=== PATIENT | female | born 1945 | race Caucasian/White ===

== ENCOUNTER 2017-08-04 18:06 | Emergency (ER) | payer MEDICARE ==
--- NOTE | 2017-08-04 18:55 | RAD ---
FOUR VIEWS LEFT KNEE 08/04/17 HISTORY: Pain. Patient fell while walking up a wooden ramp. COMPARISON: None. FINDINGS: Severe tricompartment degenerative change. There is bone demineralization. No significant joint effus ion. Extensive osteophyte formation. No definite fracture. IMPRESSION: 1. Chronic changes. 2. No posttraumatic sequela. POS: [facility]
--- NOTE | 2017-08-04 18:56 | RAD ---
LEFT ANKLE THREE VIEWS 08/04/17 HISTORY: Fall. Pain. COMPARISON: None. FINDINGS: There are degenerative changes in the midfoot. No fracture. No cortical irregularity or periosteal re action. No significant soft tissue swelling. There is diffuse bone demineralization. IMPRESSION: Chronic changes. No posttraumatic sequela. POS: [facility]
--- NOTE | 2017-08-04 18:58 | RAD ---
LEFT FOOT THREE VIEWS 08/04/17 HISTORY: Fall. Pain. COMPARISON: None. FINDINGS: There is mild bone demineralization. There are degenerative changes in the midfoot. Lisfranc alignmen t appears to be maintained. No fracture. IMPRESSION: 1. No fracture. 2. Chronic changes. POS: [facility]
== END 2017-08-04 19:18 | disposition home or self-care (01) ==
LOC: SCSER 18:06
DX: S93.402A Sprain of unspecified ligament of left ankle, initial encounter (principal); S83.92XA Sprain of unspecified site of left knee, initial encounter; E11.9 Type 2 diabetes mellitus without complications; E03.9 Hypothyroidism, unspecified; E78.5 Hyperlipidemia, unspecified; I10 Essential (primary) hypertension; Z79.4 Long term (current) use of insulin; W01.0XXA Fall on same level from slipping, tripping and stumbling without subsequent striking against object, initial encounter

== ENCOUNTER 2017-11-16 09:36 | Outpatient (CLI) | payer MEDICARE ==
--- NOTE | 2017-11-16 11:01 | RAD ---
CHEST TWO VIEWS: History: Cough, congestion, sore throat. Comparison: None. FINDINGS: Atherosclerosis of the aorta. Normal cardiac silhouette. The pulmonary vessels and hilum are normal. Costophrenic angles are clear. There are patchy interstitial opacities which may represent edema or i nfiltrate. Continued surveillance is recommended. No pneumothorax or osseous abnormality. IMPRESSION: Interstitial opacities as defined above. POS: [facility]
== END 2017-11-16 09:37 | disposition home or self-care (01) ==
LOC: SCSRAD 09:36
PROVIDERS: ATTEND Family Medicine
DX: R05 Cough (principal); R91.8 Other nonspecific abnormal finding of lung field; I70.0 Atherosclerosis of aorta
CPT/HCPCS: 71046

== ENCOUNTER 2017-11-22 15:01 | Outpatient (CLI) | payer MEDICARE ==
--- NOTE | 2017-11-22 18:16 | RAD ---
TWO VIEWS CHEST: Date: 11-22-17 Comparison: 11-16-17 History: Pneumonia. FINDINGS: No pneumothorax, pleural fluid, focal consolidation or alveolar edema. Heart and mediastinal contours are grossly unremarkable. There are atherosclerotic calcification of the aortic arch. IMPRESSION: Stable interstitial prominence with no focal consolation or alveolar edema. POS: [facility]
== END 2017-11-22 15:02 | disposition home or self-care (01) ==
LOC: SCSRAD 15:01
PROVIDERS: ATTEND Family Medicine
DX: J18.9 Pneumonia, unspecified organism (principal)
CPT/HCPCS: 71046

== ENCOUNTER 2018-01-03 13:55 | Outpatient (CLI) | payer MEDICARE | END 2018-01-03 13:56 | disposition home or self-care (01) | LOC: CTENTCT 13:55 | PROVIDERS: ATTEND Otolaryngology Plastic Surgery within the Head & Neck | DX: J32.9 Chronic sinusitis, unspecified (principal) | CPT/HCPCS: 70486 ==

== ENCOUNTER 2018-05-26 10:35 | Outpatient (CLI) | payer MEDICARE | END 2018-05-26 10:36 | disposition home or self-care (01) | LOC: BICMAMMO 10:35 | PROVIDERS: ATTEND Family Medicine | DX: Z12.31 Encounter for screening mammogram for malignant neoplasm of breast (principal); R92.1 Mammographic calcification found on diagnostic imaging of breast | CPT/HCPCS: 77063; 77067 ==

== ENCOUNTER 2018-09-23 14:09 | Outpatient (CLI) | payer MEDICARE ==
--- NOTE | 2018-09-23 14:46 | RAD ---
RIGHT HIP TWO VIEWS: History: Right hip pain. FINDINGS: Minimal osteoarthritic changes of the hip are noted without significant joint space narrowing. Calcif ied uterine fibroid is again demonstrated. IMPRESSION: Minimal arthritic changes of the right hip. POS: [facility]
--- NOTE | 2018-09-23 14:58 | RAD ---
LEFT HIP 2 VIEWS: HISTORY: Hip pain. FINDINGS: There are some mild osteoarthritic changes of the hip without significant joint space narrowing. Min imal osteophytic change. A prominent calcified fibroid is noted. It measures approximately 5.6 cm o n this view. IMPRESSION: 1. Minimal arthritic changes of the left hip. 2. Calcified uterine fibroid. POS: [facility]
--- NOTE | 2018-09-23 14:58 | RAD ---
LUMBAR SPINE SERIES 3 VIEWS: HISTORY: Back pain. FINDINGS: Vertebral bodies maintain normal height. Degenerative osteophytes are seen without significant disk narrowing. Pedicles are intact. Calcified uterine fibroid is again demonstrated. Vascular calcific ations are seen. IMPRESSION: Mild arthritic changes of the spine. POS: [facility]
== END 2018-09-23 14:10 | disposition home or self-care (01) ==
LOC: SCSRAD 14:09
PROVIDERS: ATTEND Family Medicine
DX: M25.551 Pain in right hip (principal); M25.552 Pain in left hip; M54.5 Low back pain; D25.9 Leiomyoma of uterus, unspecified; M16.0 Bilateral primary osteoarthritis of hip; M46.96 Unspecified inflammatory spondylopathy, lumbar region
CPT/HCPCS: 72100

== ENCOUNTER 2019-02-03 07:45 | Outpatient (CLI) | payer MEDICARE ==
--- NOTE | 2019-02-03 10:36 | MRI ---
LUMBAR SPINE MRI WITHOUT IV CONTRAST: HISTORY: Low back pain with radiation down the left hip. FINDINGS: Two small T2 hyperintense foci noted within the liver, not completely characterized but statistically small liver cysts. Generalized disk desiccation changes and disk-osteophytosis. Disk-osteophytosis with mild indention of the ventral thecal sac at T11-T12. T12-L1: Bilateral recess stenosis. L2-L3: Mild lateral recess stenosis. L3-L4: Moderate central canal and bilateral recess stenosis and moderate bilateral foraminal stenosis . L4-5: There is a large extruded disk herniation in the right central region at L4-L5 with considerabl e superior migration up to the mid L4 vertebral body level with severe canal and right lateral recess stenosis with moderate bilateral foraminal stenosis. L5-S1: Mild central canal and lateral recess and foraminal stenosis. Prominent facet arthrosis. IMPRESSION: Multilevel variable severity canal, lateral recess, and foraminal stenosis most marked at L4-L5 with a large cranially extending extruded right central disk with extensive distal migration. Other findi ngs as above. POS: [facility]
== END 2019-02-03 07:46 | disposition home or self-care (01) ==
LOC: SCSMRI 07:45
PROVIDERS: ATTEND Family Medicine
DX: M54.5 Low back pain (principal); M48.061 Spinal stenosis, lumbar region without neurogenic claudication; M51.26 Other intervertebral disc displacement, lumbar region; M47.897 Other spondylosis, lumbosacral region
CPT/HCPCS: 72148

== ENCOUNTER 2019-02-21 14:36 | Emergency (ER) | payer MEDICARE ==
[2019-02-21] MEDS ORDERED: Morphine 4 MG/ML VIAL ONE ×2 (15:50→15:56)
[2019-02-21] MEDS ORDERED: Ketorolac Tromethamine 30 MG/ML VIAL ONE (15:56)
[2019-02-21] MEDS ORDERED: Diazepam 5 MG TAB ONE (15:56)
== END 2019-02-21 16:25 | disposition home or self-care (01) ==
LOC: ERS 14:36
DX: M54.9 Dorsalgia, unspecified (principal)
CPT/HCPCS: 96372; J1885; J2270

== ENCOUNTER 2019-06-27 08:11 | Day surgery (SDC) | payer MEDICARE ==
[2019-06-27] MEDS ORDERED: Dextrose 50% Abboject 50 ML SYRINGE ONE (09:40)
[2019-06-27] MEDS ORDERED: Thrombin 5000 UNITS/5 ML VIAL ONE (12:27)
[2019-06-27] MEDS ORDERED: Sodium Chloride 0.9% 10 ML ONE (12:27)
[2019-06-27] MEDS ORDERED: Fentanyl 100 MCG/2 ML VIAL ONE ×4 (12:42→17:16)
[2019-06-27] MEDS ORDERED: traMADol HCl 50 MG TAB PO PRN (16:09)
[2019-06-27] MEDS ORDERED: Bisacodyl 10 MG SUPP PR PRN (16:09)
[2019-06-27] MEDS ORDERED: Ondansetron PF 4 MG/2 ML Vial IVP PRN (16:09)
[2019-06-27] MEDS ORDERED: Acetaminophen/Codeine 30-300mg Tablet PO PRN (16:09)
[2019-06-27] MEDS ORDERED: Mag-Al 1200 mg/1200 mg/30 ML UDCUP PO PRN (16:09)
[2019-06-27] MEDS ORDERED: Acetaminophen 325 MG TAB PO PRN (16:09)
[2019-06-27] MEDS ORDERED: Fleet Enema 133 ML BOT PR PRN (16:09)
[2019-06-27] MEDS ORDERED: Milk Of Magnesia 30 ML UDCUP PO PRN (16:09)
[2019-06-27] MEDS ORDERED: Morphine 2 MG/ML SYRINGE SLOW IVP PRN (16:09)
[2019-06-27] MEDS ORDERED: HYDROmorphone 2 MG/ML VIAL SLOW IVP PRN (16:14)
[2019-06-27] MEDS ORDERED: Morphine Sulfate 2 MG/ML SYRINGE SLOW IVP PRN (16:14)
[2019-06-27] MEDS ORDERED: Ondansetron HCl/PF 4 MG/2 ML Vial IVP PRN (16:14)
[2019-06-27] MEDS ORDERED: PACU-Morphine 4MG/ML VIAL SLOW IVP PRN (16:14)
[2019-06-27] MEDS ORDERED: Promethazine HCl 25 MG/ML VIAL SLOW IVP PRN (16:14)
[2019-06-27] MEDS ORDERED: Promethazine HCl 25 MG/ML VIAL IM PRN (16:14)
[2019-06-27] MEDS: Sodium Chloride 0.9% 1,000 ML IV SCH (19:58)
[2019-06-27] MEDS: Gabapentin 300 MG CAP PO SCH (20:13)
[2019-06-27] MEDS: Glimepiride 4 MG TAB PO SCH (20:14)
[2019-06-27] MEDS: CEFAZOLIN 2 GM in Premix Bag 1 BAG IVPB SCH (20:14)
[2019-06-27] MEDS ORDERED: Atorvastatin Calcium 10 MG TAB PO SCH (21:00)
[2019-06-27] MEDS: HYDROcodone/Acetaminophen 7.5/325 mg Tablet PO PRN (22:36)
[2019-06-27 23:31] VITALS: BMI 34.3
[2019-06-28] MEDS: HYDROcodone/Acetaminophen 7.5/325 mg Tablet PO PRN ×2 (02:51→11:53)
[2019-06-28] MEDS: Sodium Chloride 0.9% 1,000 ML IV SCH (05:22)
[2019-06-28] MEDS: CEFAZOLIN 2 GM in Premix Bag 1 BAG IVPB SCH (05:22)
[2019-06-28] MEDS: tiZANidine HCl 4 MG TAB PO PRN ×2 (05:22→14:25)
[2019-06-28] MEDS ORDERED: Levothyroxine 150 MCG TAB PO SCH (06:00)
--- NOTE | 2019-06-28 08:29 | OP ---
DATE OF PROCEDURE: 06/27/2019 LOCATION: OR 12. ADMINISTRATIVE SERVICES DIRECTOR: Johny Cardenas PA-C. PREPROCEDURE DIAGNOSIS: Lumbar stenosis with low back and leg pain with lumbar disk extrusion. POSTPROCEDURE DIAGNOSIS: Lumbar stenosis with low back and leg pain with lumbar disk extrusion. PROCEDURES PERFORMED: 1. L3-L4, L4-L5, L5-S1 laminectomies, partial facetectomies, foraminotomies. 2. Use of operative microscope for microdissection. 3. Right L4-L5 diskectomy. DESCRIPTION OF PROCEDURE: After informed consent was obtained from the patient, the patient was brought to the OR. Proper patient, pause, and identification were carried out. She was placed under excellent endotracheal anesthesia and positioned prone on the OR table. All appropriate points were padded. We identified the L3, L4, L5, S1 dorsal spines and lamina. A linear jacinda was made over this region. This area was sterilely cleansed, prepared, and draped. Proper patient, pause, and identification were carried out. The wound was then opened with a combination of sharp, monopolar, and blunt dissection. We then exposed the L3, L4, L5, and S1 dorsal spines and lamina. Localization confirmed our area of interest. We then performed L3, L4, L5, S1 laminectomies, partial facetectomies, foraminotomies. We then brought the microscope in, working over the right L5 traversing nerve root. We removed the disk fragments that have been extruded at the right L4-L5 segment with excellent decompression of the common dural tube and nerve roots. We were pleased with our decompression. Copious irrigation occurred throughout. We maximized hemostasis and we then turned our attention to closure. There was no spinal fluid leak. Vancomycin powder was placed in the wound and the wound was hemostased. Job ID: [id number]
[2019-06-28] MEDS: Gabapentin 300 MG CAP PO SCH ×2 (08:42→14:20)
[2019-06-28] MEDS: Glimepiride 4 MG TAB PO SCH (08:43)
[2019-06-28] MEDS ORDERED: Ubidecarenone 50 MG CAP PO SCH (09:00)
[2019-06-28] MEDS ORDERED: Losartan/Hydrochlorothiazide 100 mg/25 mg Tablet PO SCH (09:00)
[2019-06-28 16:15] VITALS: BP 95/58; TEMP 98.4
--- NOTE | 2019-06-28 22:28 | DIS ---
DATE OF ADMISSION: 06/27/2019 DATE OF DISCHARGE: 06/28/2019 DISCHARGE DIAGNOSES: 1. Lumbar spinal stenosis with lumbar radiculopathy. 2. Low back pain. 3. Type 2 diabetes mellitus. 4. Hypertension. HOSPITAL COURSE: Ms. Ellis was admitted to undergo multilevel lumbar laminectomies with Dr. Blanchard. Her surgery was without complication. She required one overnight stay for adequate pain control and improvement in her mobility. At the time of discharge, she complained of some burning at the incision site, but otherwise had significant improvement in her bilateral lower extremity symptoms. She did have some muscle spasms that was improved with tizanidine. The patient had good strength in the bilateral lower extremities and was using a walker at the time of discharge. Appropriate patient education and outpatient followups were provided to the patient. She was pleased with her outcome postoperatively. Job ID: [id number]
== END 2019-06-28 17:16 | disposition home or self-care (01) ==
LOC: SDC 08:11 → SURG A 16:09 → SDC 06-28 17:16
PROVIDERS: ATTEND Surgery
PROC: 01NB0ZZ Release Lumbar Nerve, Open Approach (ICD-10-PCS; principal; 2019-06-27)
PROC: 0ST20ZZ Resection of Lumbar Vertebral Disc, Open Approach (ICD-10-PCS; 2019-06-27)
DX: M48.061 Spinal stenosis, lumbar region without neurogenic claudication (principal); M51.16 Intervertebral disc disorders with radiculopathy, lumbar region; Z79.1 Long term (current) use of non-steroidal anti-inflammatories (NSAID); Z79.84 Long term (current) use of oral hypoglycemic drugs; Z79.891 Long term (current) use of opiate analgesic; Z79.899 Other long term (current) drug therapy
CPT/HCPCS: 36416; 76000; J0690; J3010; J3370; J3490

== ENCOUNTER 2019-09-04 10:39 | Outpatient (CLI) | payer MEDICARE ==
--- NOTE | 2019-09-04 11:28 | MMO ---
Bilateral MAMMO Bilat Screen [facility]. CLINICAL HISTORY: Patient is 74 years old and is seen for screening. The patient has no family history of breast cancer. The patient has no personal history of cancer. VIEWS: The views performed were: bilateral craniocaudal with tomosynthesis and bilateral mediolateral oblique with tomosynthesis. FILMS COMPARED: The present examination has been compared to prior imaging studies performed at [facility] on 04/11/2014, 05/03/2015, 05/13/2016 and 05/26/2018. This study has been interpreted with the assistance of computer-aided detection. MAMMOGRAM FINDINGS: There are scattered fibroglandular densities. There are stable benign appearing calcifications seen in both breasts. There are no suspicious masses, suspicious calcifications, or new areas of architectural distortion. IMPRESSION: THERE IS NO MAMMOGRAPHIC EVIDENCE OF MALIGNANCY. A ROUTINE FOLLOW-UP MAMMOGRAM IN 1 YEAR IS RECOMMENDED. THE RESULTS OF THIS EXAM WERE SENT TO THE PATIENT. ACR BI-RADS Category 2 - Benign finding MAMMOGRAPHY NOTE: 1. A negative mammogram report should not delay a biopsy if a dominant of clinically suspicious mass is present. 2. Approximately 10% to 15% of breast cancers are not detected by mammography. 3. Adenosis and dense breasts may obscure an underlying neoplasm. Reported by: BRANDEN LENZ MD Electonically Signed: [id number]
== END 2019-09-04 10:40 | disposition home or self-care (01) ==
LOC: BICMAMMO 10:39
PROVIDERS: ATTEND Family Medicine
DX: Z12.31 Encounter for screening mammogram for malignant neoplasm of breast (principal)
CPT/HCPCS: 77063; 77067

== ENCOUNTER 2020-02-21 13:00 | Outpatient (CLI) | payer MEDICARE | END 2020-02-21 13:01 | disposition home or self-care (01) | LOC: DTY/OP 13:00 | PROVIDERS: ATTEND Family Medicine | DX: E11.9 Type 2 diabetes mellitus without complications (principal); E78.5 Hyperlipidemia, unspecified; K21.9 Gastro-esophageal reflux disease without esophagitis; E03.9 Hypothyroidism, unspecified; E66.9 Obesity, unspecified; D64.9 Anemia, unspecified; J30.9 Allergic rhinitis, unspecified; I10 Essential (primary) hypertension; M35.3 Polymyalgia rheumatica | CPT/HCPCS: 97802 ==

== ENCOUNTER 2022-04-14 09:34 | Outpatient (CLI) | payer MEDICARE | END 2022-04-14 09:35 | disposition home or self-care (01) | LOC: BICMAMMO 09:34 | PROVIDERS: ATTEND Family Medicine | DX: Z12.31 Encounter for screening mammogram for malignant neoplasm of breast (principal); Z91.89 Other specified personal risk factors, not elsewhere classified | CPT/HCPCS: 77063; 77067 ==

== ENCOUNTER 2022-09-11 10:54 | Outpatient (CLI) | payer MEDICARE ==
[2022-09-11 16:03] LABS: ALT (SGPT) 8 U/L (8-55); AST (SGOT) 13 U/L (5-34); Albumin 3.6 g/dL (3.4-4.8); Alkaline Phosphatase 95 U/L (40-110); Anion Gap 18 mmol/L (10-20); BUN (Urea Nitrogen) 13 mg/dL (9.8-20.1); CRP (Inflammatory) 20.73 mg/dL (= or < 0.5); Calc. Creatinine Clearance 0 mL/min (70-130); Calcium 9.8 mg/dL (7.8-10.44); Carbon Dioxide 25 mmol/L (23-31); Chloride 98 mmol/L (98-107); Cholesterol 133 mg/dl (< 200 Desired); Estimated GFR 69; HDL Cholesterol 65 mg/dL (>60 Neg Risk); LDL Cholesterol, Calculated 56 mg/dL; Potassium 3.5 mmol/L (3.5-5.1); Protein, Total 8.6 g/dL (5.8-8.1); Sodium 137 mmol/L (136-145); Triglycerides 58 mg/dL (Less than 150)
[2022-09-11 16:10] LABS: Creatinine, Urine 29.63 mg/dL (47-110); Microalbumin Urine 6.6 mg/dL (0.5-50.0); Microalbumin/Creat Ratio 222.7 mg/g (Less than 30)
[2022-09-11 16:19] LABS: Free T4 (Free Thyroxine) 1.61 ng/dL (0.70-1.48); Thyroid Stimulating Hormone 0.2114 uIU/mL (0.35-4.94)
[2022-09-11 16:26] LABS: Glucose 58 mg/dL (83-110)
[2022-09-11 16:56] LABS: Band 6 % (5-11); Hemoglobin 9.1 g/dL (12.0-16.0); Lymphocytes 10 % (21-51); MDiff Complete? YES; Mean Corpuscular HGB CONC 30.3 g/dL (32.0-36.0); Mean Corpuscular Hemoglobin 27.9 pg (27.0-31.0); Mean Corpuscular Volume 92.1 fl (78.0-98.0); Mean Platelet Volume 9.7 fL (7.4-10.4); Monocytes 9 % (0-10); Neutrophil 75 % (42-75); Platelet Count 615 10x3/uL (130-400); Platelet Morphology Comment Appears Increased; RBC Distribution Width 16.3 % (11.5-14.5); RBC Morphology Normal; Red Blood Cell (RBC) Count 3.24 mill/uL (4.20-5.40); White Blood Cell (WBC) Count 19.2 10x3/uL (4.8-10.8)
== END 2022-09-11 10:55 | disposition home or self-care (01) ==
LOC: SCSRAD 10:54
PROVIDERS: ATTEND Family Medicine
DX: E11.9 Type 2 diabetes mellitus without complications (principal); M35.3 Polymyalgia rheumatica; R05.9 Cough, unspecified
CPT/HCPCS: 36415; 71046; 80053; 80061; 82043; 84439; 84443; 84481; 85025; 85652; 86140

== ENCOUNTER 2022-09-21 12:47 | Inpatient (IN) | payer MEDICARE ==
[2022-09-21] MEDS ORDERED: Morphine 4 MG/ML VIAL ONE (13:25)
[2022-09-21] MEDS ORDERED: Piperacillin/Tazobactam 3.375 GM VIAL ONE (13:25)
[2022-09-21] MEDS ORDERED: Ondansetron PF 4 MG/2 ML Vial ONE (13:25)
[2022-09-21 13:28] LABS: Hemoglobin 8.3 g/dL (12.0-16.0); Mean Corpuscular HGB CONC 30.6 g/dL (32.0-36.0); Mean Corpuscular Hemoglobin 27.8 pg (27.0-31.0); Mean Corpuscular Volume 90.9 fl (78.0-98.0); Platelet Count 538 10x3/uL (130-400); RBC Distribution Width 16.5 % (11.5-14.5); Red Blood Cell (RBC) Count 2.97 mill/uL (4.20-5.40); White Blood Cell (WBC) Count 28.4 10x3/uL (4.8-10.8)
[2022-09-21 13:51] LABS: Anisocytosis SLIGHT = 6-15 cells (100X) (0-5/hpf); Band 27 % (5-11); Lymphocytes 6 % (21-51); MDiff Complete? YES; Monocytes 1 % (0-10); Neutrophil 66 % (42-75); Ovalocytes SLIGHT = 2-5 cells (100X) (0-1/hpf); Platelet Morphology Comment Appears Increased; Polychromasia SLIGHT = 2-3 cells (100X) (0-2/hpf); Toxic Granulation SLIGHT; Vacuoles SLIGHT
[2022-09-21 13:52] LABS: ALT (SGPT) 8 U/L (8-55); AST (SGOT) 13 U/L (5-34); Alkaline Phosphatase 119 U/L (40-110); Anion Gap 16 mmol/L (10-20); BUN (Urea Nitrogen) 24 mg/dL (9.8-20.1); Bilirubin, Total 0.8 mg/dL (0.2-1.2); Calc. Creatinine Clearance 0 mL/min (70-130); Calcium 9.6 mg/dL (7.8-10.44); Carbon Dioxide 25 mmol/L (23-31); Chloride 94 mmol/L (98-107); Estimated GFR 69; Globulin 5.2 g/dL (2.4-3.5); Glucose 67 mg/dL (83-110); Potassium 3.7 mmol/L (3.5-5.1); Protein, Total 8.2 g/dL (5.8-8.1); Sodium 131 mmol/L (136-145)
[2022-09-21] MEDS ORDERED: Acetaminophen 325 MG TAB PO PRN (14:12)
[2022-09-21] MEDS ORDERED: Bisacodyl 10 MG SUPP PR PRN (14:12)
[2022-09-21 15:46] LABS: Iron 12 ug/dL (50-170); Iron Binding Capacity, Total 148 mcg/dL (265-497)
[2022-09-21 16:11] LABS: Ferritin 572.08 ng/mL (10-291)
[2022-09-21] MEDS ORDERED: Morphine 2 MG/ML VIAL ONE (17:19)
[2022-09-21] MEDS: Morphine 2 MG/ML VIAL SLOW IVP PRN (17:27)
[2022-09-21 19:38] LABS: SARS-CoV-2 NAA Rapid Test Not Detected (NotDetected)
[2022-09-21] MEDS: Piperacillin/Tazobactam 3.375 GM in Sodium Chloride 0.9% 100 ML IVPB SCH (20:22)
[2022-09-21] MEDS: Ondansetron PF 4 MG/2 ML Vial IVP PRN (20:54)
[2022-09-21] MEDS: Senokot S 8.6-50 MG TAB PO SCH (20:54)
[2022-09-21] MEDS: Atorvastatin Calcium 10 MG TAB PO SCH (20:54)
[2022-09-21] MEDS: Sodium Chloride 0.9% 1,000 ML IV SCH (21:06)
[2022-09-21] MEDS ORDERED: Losartan 25 MG TAB PO SCH (21:15)
[2022-09-22] MEDS: Piperacillin/Tazobactam 3.375 GM in Sodium Chloride 0.9% 100 ML IVPB SCH ×3 (00:01→16:38)
[2022-09-22] MEDS ORDERED: Dextrose 50% Abboject 50 ML SYRINGE SLOW IVP PRN (00:29)
[2022-09-22] MEDS ORDERED: HumaLOG 300 UNITS/3 ML VIAL SC PRN (00:29)
[2022-09-22] MEDS ORDERED: Dextrose 5% in Water 1,000 ML IV PRN (00:29)
[2022-09-22] MEDS: Sodium Chloride 0.9% 1,000 ML IV SCH ×2 (03:43→16:37)
[2022-09-22] MEDS: Morphine 2 MG/ML VIAL SLOW IVP PRN ×3 (03:50→21:16)
[2022-09-22] MEDS: Levothyroxine Sodium 125 MCG TAB PO SCH (05:19)
[2022-09-22] MEDS: Liothyronine Sodium 25 MCG TAB PO SCH (05:19)
[2022-09-22 07:38] LABS: Anion Gap 11 mmol/L (10-20); BUN (Urea Nitrogen) 18 mg/dL (9.8-20.1); Calc. Creatinine Clearance 63 mL/min (70-130); Calcium 8.7 mg/dL (7.8-10.44); Carbon Dioxide 27 mmol/L (23-31); Chloride 102 mmol/L (98-107); Estimated GFR 66; Glucose 76 mg/dL (83-110); Potassium 3.9 mmol/L (3.5-5.1); Sodium 136 mmol/L (136-145)
[2022-09-22 08:15] LABS: Band 27 % (5-11); Hemoglobin 7.2 g/dL (12.0-16.0); Hypochromia SLIGHT = 6-15 cells (100X) (0-5/hpf); Lymphocytes 5 % (21-51); MDiff Complete? YES; Mean Corpuscular HGB CONC 30.6 g/dL (32.0-36.0); Mean Corpuscular Hemoglobin 27.8 pg (27.0-31.0); Mean Platelet Volume 8.9 fL (7.4-10.4); Monocytes 6 % (0-10); Neutrophil 61 % (42-75); Ovalocytes SLIGHT = 2-5 cells (100X) (0-1/hpf); Platelet Count 473 10x3/uL (130-400); Platelet Morphology Comment Appears Increased; RBC Distribution Width 16.2 % (11.5-14.5); Reactive Lymphocytes 1 % (0-10); Red Blood Cell (RBC) Count 2.58 mill/uL (4.20-5.40); Schistocytes SLIGHT = 2-5 cells (100X) (0-1/hpf); Target Cells SLIGHT = 2-5 cells (100X) (0-1/hpf); Tear Drops SLIGHT = 2-5 cells (100X) (0-1/hpf); White Blood Cell (WBC) Count 20.9 10x3/uL (4.8-10.8)
[2022-09-22] MEDS: Senokot S 8.6-50 MG TAB PO SCH ×2 (08:47→19:20)
[2022-09-22] MEDS: Polyethylene Glycol 3350 17 GM Packet PO SCH (08:47)
[2022-09-22] MEDS: Losartan 25 MG TAB PO SCH (08:47)
[2022-09-22] MEDS: Ondansetron PF 4 MG/2 ML Vial IVP PRN (17:19)
[2022-09-22] MEDS: Atorvastatin Calcium 10 MG TAB PO SCH (19:20)
[2022-09-22] MEDS: Dextrose 5 %-0.45 % NaCl 1,000 ML IV SCH (19:59)
[2022-09-23] MEDS: Piperacillin/Tazobactam 3.375 GM in Sodium Chloride 0.9% 100 ML IVPB SCH ×3 (00:24→18:38)
[2022-09-23] MEDS: Levothyroxine Sodium 125 MCG TAB PO SCH (05:11)
[2022-09-23] MEDS: Liothyronine Sodium 25 MCG TAB PO SCH (05:11)
[2022-09-23 07:49] LABS: INR-International Normal Ratio 1.4; PTT 38.9 sec (22.9-36.1); Prothrombin Time 17.3 sec (12.0-14.7)
[2022-09-23 07:50] LABS: Mean Corpuscular Hemoglobin 27.3 pg (27.0-31.0); Mean Corpuscular Volume 91.1 fl (78.0-98.0); Mean Platelet Volume 8.7 fL (7.4-10.4); Platelet Count 564 10x3/uL (130-400); RBC Distribution Width 16.3 % (11.5-14.5); Red Blood Cell (RBC) Count 2.94 mill/uL (4.20-5.40)
[2022-09-23 07:53] LABS: Anion Gap 15 mmol/L (10-20); BUN (Urea Nitrogen) 16 mg/dL (9.8-20.1); Calc. Creatinine Clearance 73 mL/min (70-130); Calcium 8.9 mg/dL (7.8-10.44); Carbon Dioxide 23 mmol/L (23-31); Chloride 100 mmol/L (98-107); Estimated GFR 80; Magnesium 1.8 mg/dL (1.6-2.6); Phosphorus 3.4 mg/dL (2.3-4.7); Potassium 3.4 mmol/L (3.5-5.1); Sodium 135 mmol/L (136-145)
[2022-09-23 08:04] LABS: Glucose 57 mg/dL (83-110)
[2022-09-23] MEDS: Dextrose 5 %-0.45 % NaCl 1,000 ML IV SCH (08:13)
[2022-09-23] MEDS: Senokot S 8.6-50 MG TAB PO SCH (08:13)
[2022-09-23] MEDS ORDERED: Magnesium 2 GM/50 ML(in water) 2 GM in Premix Bag 1 BAG IVPB SCH (08:15)
[2022-09-23] MEDS ORDERED: Dextrose 50% Abboject 50 ML SYRINGE ONE (08:15)
[2022-09-23] MEDS ORDERED: Potassium Phosphate 30 MMOL, Magnesium Sulfate 2 GM in Sodium Chloride 0.9% 250 ML 250 ML IVPB SCH (08:15)
[2022-09-23] MEDS ORDERED: Fentanyl 250 MCG/5 ML VIAL ONE (08:42)
[2022-09-23] MEDS ORDERED: Bupivacaine/Epinephrine 0.25% 30 ML VIAL ONE (08:49)
[2022-09-23] MEDS ORDERED: PHENYLEPHRINE-NS 100 MCG/ML 10 ML SYRINGE ONE (09:04)
[2022-09-23] MEDS ORDERED: Dexamethasone 20 MG/5 ML VIAL ONE (09:04)
[2022-09-23] MEDS ORDERED: Glycopyrrolate 0.2 MG/ML 5 ML SYRINGE ONE (09:04)
[2022-09-23] MEDS ORDERED: Lidocaine 1% PF 5 ML VIAL ONE (09:04)
[2022-09-23] MEDS ORDERED: Rocuronium Bromide 10 MG/ML (10ML VIAL) ONE (09:04)
[2022-09-23] MEDS ORDERED: Ondansetron PF 4 MG/2 ML Vial ONE (09:04)
[2022-09-23] MEDS ORDERED: NEOSTIGMINE 3 MG/3 ML SYR 3 MG/3 ML SYRINGE ONE (09:04)
[2022-09-23] MEDS ORDERED: PROPOFOL 200 MG/20 ML VIAL ONE (09:04)
[2022-09-23] MEDS ORDERED: Heparin 10,000 UNITS/ 10 ML VIAL ONE (09:45)
[2022-09-23 09:47] LABS: Band 18 % (5-11); Hypochromia SLIGHT = 6-15 cells (100X) (0-5/hpf); Lymphocytes 3 % (21-51); MDiff Complete? YES; Monocytes 4 % (0-10); Neutrophil 75 % (42-75); Platelet Morphology Comment Appears Increased; Polychromasia MODERATE = 3-4 cells (100X) (0-2/hpf)
[2022-09-23] MEDS ORDERED: Neomycin-Polymyxin 1 ML AMP ONE (12:09)
[2022-09-23] MEDS ORDERED: Promethazine HCl 25 MG/ML VIAL IM PRN ×2 (14:02→15:14)
[2022-09-23] MEDS ORDERED: HYDROmorphone 2 MG/ML VIAL SLOW IVP PRN (14:02)
[2022-09-23] MEDS ORDERED: Ondansetron HCl/PF 4 MG/2 ML Vial IVP PRN (14:02)
[2022-09-23] MEDS ORDERED: SUGAMMADEX SODIUM 200 MG/2 ML VIAL ONE (14:04)
[2022-09-23] MEDS ORDERED: Fentanyl 100 MCG/2 ML VIAL ONE (14:23)
[2022-09-23] MEDS ORDERED: Potassium Chloride 10 MEQ in Dextrose 5%-Lactated Ringers 1,000 ML IV SCH ×2 (14:30→18:45)
[2022-09-23] MEDS ORDERED: HYDROmorphone 0.5 MG/0.5 ML SYRINGE ONE ×2 (15:14→16:04)
[2022-09-23] MEDS ORDERED: Naloxone HCl 0.4 mg/ml Vial IV PRN (15:14)
[2022-09-23] MEDS ORDERED: diphenhydrAMINE 50 MG/ML VIAL IVP PRN (15:14)
[2022-09-23] MEDS ORDERED: diphenhydrAMINE 25 MG CAP PO PRN (15:14)
[2022-09-23] MEDS ORDERED: diphenhydrAMINE 50 MG/ML VIAL IM PRN (15:14)
[2022-09-23] MEDS ORDERED: HYDROmorphone 10 mg/100 ml CADD IVPB PRN (15:14)
[2022-09-23] MEDS ORDERED: Communication Order-Pharmacy FS SCH (15:15)
[2022-09-23] MEDS: Losartan 25 MG TAB PO SCH (15:17)
[2022-09-23] MEDS ORDERED: HYDROmorphone/PF 10 MG in Sodium Chloride 0.9% 99 ML IVPB PRN (15:45)
[2022-09-23] MEDS: Polyethylene Glycol 3350 17 GM Packet PO SCH (18:30)
[2022-09-23] MEDS: Ketorolac Tromethamine 30 MG/ML VIAL IVP SCH ×2 (18:35→23:16)
[2022-09-23] MEDS: Dextrose 5% in Water 1,000 ML IV SCH (19:08)
[2022-09-23 20:12] LABS: Actual Bicarbonate (HCO3a) 15.9 mEq/L (22-28); Base Excess (BEa) -8.5 mEq/L (-2.0 to +3.0); CO2 Tension 28.8 mmHg (35.0-45.0); Calcium, Ionized (arterial) 1.07 mmol/L (1.12-1.30); Carboxyhemoglobin (COHb) 0.8 gm% (0.0-3.0); Hemoglobin (Hb) 8.4 g/dL (12.0-16.0); O2 Tension (PaO2), arterial 153.2 mmHg (> 70.0); Potassium - ABG Lab 3.99 mmol/L (3.70-5.30); pH, Arterial 7.36 (7.35-7.45)
[2022-09-23 20:14] LABS: Puncture Site LRA
[2022-09-23] MEDS ORDERED: Calcium Chloride 1 GM/10 ML Abboject SYRINGE ONE (20:30)
[2022-09-23] MEDS ORDERED: Calcium Chloride 1 GM/10 ML Abboject SYRINGE IVP SCH (20:45)
[2022-09-23] MEDS: Pantoprazole 40 MG VIAL IVP SCH (22:32)
[2022-09-23] MEDS: Atorvastatin Calcium 10 MG TAB PO SCH (22:35)
[2022-09-23] MEDS ORDERED: Sodium Chloride 0.9% 500 ML IV SCH (23:15)
[2022-09-24] MEDS ORDERED: Sodium Chloride 0.9% 500 ML IV SCH (01:15)
[2022-09-24] MEDS: Piperacillin/Tazobactam 3.375 GM in Sodium Chloride 0.9% 100 ML IVPB SCH ×3 (01:38→17:08)
[2022-09-24 02:13] LABS: Hemoglobin 9.1 g/dL (12.0-16.0); Mean Corpuscular HGB CONC 31.8 g/dL (32.0-36.0); Mean Corpuscular Hemoglobin 29.9 pg (27.0-31.0); Mean Corpuscular Volume 93.9 fl (78.0-98.0); Mean Platelet Volume 8.7 fL (7.4-10.4); Platelet Count 406 10x3/uL (130-400); RBC Distribution Width 15.6 % (11.5-14.5); Red Blood Cell (RBC) Count 3.04 mill/uL (4.20-5.40); White Blood Cell (WBC) Count 36.1 10x3/uL (4.8-10.8)
[2022-09-24 02:30] LABS: Anion Gap 19 mmol/L (10-20); BUN (Urea Nitrogen) 19 mg/dL (9.8-20.1); Calc. Creatinine Clearance 42 mL/min (70-130); Calcium 9.1 mg/dL (7.8-10.44); Carbon Dioxide 14 mmol/L (23-31); Chloride 107 mmol/L (98-107); Estimated GFR 41; Glucose 201 mg/dL (83-110); Magnesium 2.1 mg/dL (1.6-2.6); Phosphorus 6.5 mg/dL (2.3-4.7); Potassium 4.8 mmol/L (3.5-5.1); Sodium 135 mmol/L (136-145)
[2022-09-24 02:39] LABS: Anisocytosis SLIGHT = 6-15 cells (100X) (0-5/hpf); Band 33 % (5-11); Burr Cells MODERATE= 6-15 cells (100X) (0-1/hpf); Hypochromia SLIGHT = 6-15 cells (100X) (0-5/hpf); Lymphocytes 4 % (21-51); MDiff Complete? YES; Monocytes 4 % (0-10); Neutrophil 59 % (42-75); Platelet Morphology Comment Appears Adequate; Polychromasia SLIGHT = 2-3 cells (100X) (0-2/hpf)
[2022-09-24] MEDS: Dextrose 5% in Water 1,000 ML IV SCH (05:25)
[2022-09-24] MEDS: Ketorolac Tromethamine 30 MG/ML VIAL IVP SCH (05:26)
[2022-09-24] MEDS: Levothyroxine Sodium 125 MCG TAB PO SCH (05:26)
[2022-09-24] MEDS: Liothyronine Sodium 25 MCG TAB PO SCH (06:21)
[2022-09-24] MEDS: HumaLOG 300 UNITS/3 ML VIAL SC PRN ×2 (06:25→12:29)
[2022-09-24] MEDS ORDERED: Sodium Chloride 0.9% 1,000 ML IV SCH (06:45)
[2022-09-24] MEDS ORDERED: FLU VACC QS2022-23(65YR UP)/PF 240 MCG/0.7 ML SYRINGE IM ONE (09:00)
[2022-09-24] MEDS: Pantoprazole 40 MG VIAL IVP SCH ×2 (09:03→20:23)
[2022-09-24] MEDS ORDERED: Lactated Ringer's 500 ML IV SCH (15:15)
[2022-09-24 16:13] LABS: Actual Bicarbonate (HCO3a) 19.6 mEq/L (22-28); Base Excess (BEa) -4.3 mEq/L (-2.0 to +3.0); CO2 Tension 31.2 mmHg (35.0-45.0); Calcium, Ionized (arterial) 1.19 mmol/L (1.12-1.30); Hemoglobin (Hb) 8.4 g/dL (12.0-16.0); O2 Tension (PaO2), arterial 114.8 mmHg (> 70.0); Potassium - ABG Lab 4.02 mmol/L (3.70-5.30); pH, Arterial 7.42 (7.35-7.45)
[2022-09-24 16:15] LABS: Puncture Site LRA
[2022-09-24] MEDS: Atorvastatin Calcium 10 MG TAB PO SCH (20:23)
[2022-09-24 21:06] LABS: Hemoglobin 7.4 g/dL (12.0-16.0); Mean Corpuscular HGB CONC 31.1 g/dL (32.0-36.0); Mean Corpuscular Hemoglobin 28.6 pg (27.0-31.0); Mean Corpuscular Volume 91.8 fl (78.0-98.0); Mean Platelet Volume 8.7 fL (7.4-10.4); Platelet Count 396 10x3/uL (130-400); RBC Distribution Width 15.6 % (11.5-14.5); White Blood Cell (WBC) Count 36.2 10x3/uL (4.8-10.8)
[2022-09-24 21:26] LABS: ALT (SGPT) 10 U/L (8-55); AST (SGOT) 16 U/L (5-34); Alkaline Phosphatase 64 U/L (40-110); Anion Gap 10 mmol/L (10-20); BUN (Urea Nitrogen) 22 mg/dL (9.8-20.1); Band 18 % (5-11); Bilirubin, Total 0.6 mg/dL (0.2-1.2); Calc. Creatinine Clearance 53 mL/min (70-130); Calcium 8.2 mg/dL (7.8-10.44); Carbon Dioxide 21 mmol/L (23-31); Chloride 105 mmol/L (98-107); Estimated GFR 51; Globulin 3.3 g/dL (2.4-3.5); Glucose 208 mg/dL (83-110); Lymphocytes 7 % (21-51); MDiff Complete? YES; Magnesium 1.8 mg/dL (1.6-2.6); Monocytes 1 % (0-10); Myelocyte 1 % (0-0); Neutrophil 73 % (42-75); Potassium 4.3 mmol/L (3.5-5.1); Protein, Total 5.3 g/dL (5.8-8.1); Sodium 132 mmol/L (136-145); Toxic Granulation SLIGHT
[2022-09-24] MEDS ORDERED: Metoprolol Tartrate 5 MG/5 ML VIAL IVP SCH (21:30)
[2022-09-24] MEDS ORDERED: Chloraseptic Spray 180 ml Bottle PO PRN (21:45)
[2022-09-24] MEDS ORDERED: Magnesium 2 GM/50 ML(in water) 2 GM in Premix Bag 1 BAG IVPB SCH (21:45)
[2022-09-24 21:47] LABS: Phosphorus 3.3 mg/dL (2.3-4.7)
[2022-09-24] MEDS ORDERED: Metoprolol Tartrate 25 MG TAB PO SCH (21:47)
[2022-09-24] MEDS ORDERED: Albumin 25% 25 GM/100 ML BOT IVPB PRN ×2 (21:48→21:59)
[2022-09-24] MEDS ORDERED: Metoprolol Tartrate 5 MG/5 ML VIAL IVP PRN (21:49)
[2022-09-24 22:26] LABS: CKMB 2.4 ng/mL (0-6.6)
[2022-09-25] MEDS: Piperacillin/Tazobactam 3.375 GM in Sodium Chloride 0.9% 100 ML IVPB SCH ×3 (01:21→17:48)
[2022-09-25 06:16] LABS: Hemoglobin 7.9 g/dL (12.0-16.0); Mean Corpuscular HGB CONC 32.1 g/dL (32.0-36.0); Mean Corpuscular Hemoglobin 28.9 pg (27.0-31.0); Mean Corpuscular Volume 89.8 fl (78.0-98.0); Mean Platelet Volume 8.6 fL (7.4-10.4); Platelet Count 360 10x3/uL (130-400); RBC Distribution Width 15.4 % (11.5-14.5); Red Blood Cell (RBC) Count 2.75 mill/uL (4.20-5.40); White Blood Cell (WBC) Count 32.4 10x3/uL (4.8-10.8)
[2022-09-25] MEDS: Levothyroxine Sodium 125 MCG TAB PO SCH (06:37)
[2022-09-25 06:49] LABS: Anion Gap 11 mmol/L (10-20); BUN (Urea Nitrogen) 20 mg/dL (9.8-20.1); Calc. Creatinine Clearance 74 mL/min (70-130); Calcium 8.6 mg/dL (7.8-10.44); Carbon Dioxide 21 mmol/L (23-31); Chloride 105 mmol/L (98-107); Estimated GFR 68; Glucose 138 mg/dL (83-110); Magnesium 2.3 mg/dL (1.6-2.6); Phosphorus 2.5 mg/dL (2.3-4.7); Potassium 4.2 mmol/L (3.5-5.1); Sodium 133 mmol/L (136-145)
[2022-09-25 06:53] LABS: Band 14 % (5-11); Lymphocytes 6 % (21-51); MDiff Complete? YES; Monocytes 3 % (0-10); Neutrophil 77 % (42-75); Toxic Granulation SLIGHT
[2022-09-25] MEDS ORDERED: Sodium Phosphate 15 MMOL in Sodium Chloride 0.9% 250 ML 250 ML IVPB SCH ×2 (07:45→16:45)
[2022-09-25] MEDS: hydrALAZINE 20 MG/ML VIAL SLOW IVP PRN ×2 (07:50→14:26)
[2022-09-25] MEDS: Metoprolol Tartrate 25 MG TAB PO SCH ×2 (07:56→20:19)
[2022-09-25] MEDS: Liothyronine Sodium 25 MCG TAB PO SCH (08:09)
[2022-09-25] MEDS: Pantoprazole 40 MG VIAL IVP SCH ×2 (08:09→20:20)
[2022-09-25] MEDS ORDERED: Furosemide 40 MG/4 ML VIAL ONE (08:32)
[2022-09-25] MEDS ORDERED: Furosemide 40 MG/4 ML VIAL SLOW IVP SCH (09:15)
[2022-09-25 09:31] LABS: Troponin I 0.031 ng/mL (< 0.028)
[2022-09-25 16:17] LABS: Anion Gap 16 mmol/L (10-20); BUN (Urea Nitrogen) 18 mg/dL (9.8-20.1); Calc. Creatinine Clearance 69 mL/min (70-130); Calcium 8.7 mg/dL (7.8-10.44); Carbon Dioxide 20 mmol/L (23-31); Chloride 104 mmol/L (98-107); Estimated GFR 63; Glucose 81 mg/dL (83-110); Phosphorus 2.9 mg/dL (2.3-4.7); Sodium 136 mmol/L (136-145)
[2022-09-25 17:18] LABS: Hemoglobin 9.4 g/dL (12.0-16.0); Mean Corpuscular HGB CONC 31.6 g/dL (32.0-36.0); Mean Corpuscular Hemoglobin 28.6 pg (27.0-31.0); Mean Corpuscular Volume 90.5 fl (78.0-98.0); Mean Platelet Volume 9.2 fL (7.4-10.4); Platelet Count 377 10x3/uL (130-400); RBC Distribution Width 15.9 % (11.5-14.5); Red Blood Cell (RBC) Count 3.28 mill/uL (4.20-5.40); White Blood Cell (WBC) Count 32.7 10x3/uL (4.8-10.8)
[2022-09-25 17:22] LABS: Band 25 % (5-11); Lymphocytes 9 % (21-51); MDiff Complete? YES; Monocytes 5 % (0-10); Neutrophil 61 % (42-75); Platelet Morphology Comment Appears Adequate; RBC Morphology Normal
[2022-09-25] MEDS: Atorvastatin Calcium 10 MG TAB PO SCH (20:19)
[2022-09-26] MEDS: Piperacillin/Tazobactam 3.375 GM in Sodium Chloride 0.9% 100 ML IVPB SCH ×3 (00:06→16:57)
[2022-09-26] MEDS: Liothyronine Sodium 25 MCG TAB PO SCH (05:20)
[2022-09-26] MEDS: Levothyroxine Sodium 125 MCG TAB PO SCH (05:20)
[2022-09-26 05:39] LABS: Hemoglobin 8.9 g/dL (12.0-16.0); Mean Corpuscular Hemoglobin 27.7 pg (27.0-31.0); Mean Corpuscular Volume 89.2 fl (78.0-98.0); Mean Platelet Volume 8.8 fL (7.4-10.4); Platelet Count 393 10x3/uL (130-400); RBC Distribution Width 15.9 % (11.5-14.5); White Blood Cell (WBC) Count 29.7 10x3/uL (4.8-10.8)
[2022-09-26 05:57] LABS: Anion Gap 13 mmol/L (10-20); BUN (Urea Nitrogen) 13 mg/dL (9.8-20.1); Calc. Creatinine Clearance 87 mL/min (70-130); Calcium 8.2 mg/dL (7.8-10.44); Carbon Dioxide 22 mmol/L (23-31); Chloride 104 mmol/L (98-107); Estimated GFR 82; Glucose 90 mg/dL (83-110); Magnesium 1.7 mg/dL (1.6-2.6); Phosphorus 2.5 mg/dL (2.3-4.7); Sodium 136 mmol/L (136-145)
[2022-09-26] MEDS ORDERED: Furosemide 40 MG/4 ML VIAL ONE (06:37)
[2022-09-26] MEDS: Metoprolol Tartrate 25 MG TAB PO SCH ×3 (06:39→16:58)
[2022-09-26 06:41] LABS: Band 12 % (5-11); Lymphocytes 5 % (21-51); MDiff Complete? YES; Monocytes 4 % (0-10); Neutrophil 79 % (42-75)
[2022-09-26] MEDS ORDERED: Furosemide 40 MG/4 ML VIAL SLOW IVP SCH (06:45)
[2022-09-26] MEDS ORDERED: Magnesium 2 GM/50 ML(in water) 2 GM in Premix Bag 1 BAG IVPB SCH (06:45)
[2022-09-26] MEDS ORDERED: Potassium Phosphate 30 MMOL in Sodium Chloride 0.9% 250 ML 250 ML IVPB SCH ×2 (06:45→16:30)
[2022-09-26] MEDS: Pantoprazole 40 MG VIAL IVP SCH ×2 (07:32→20:01)
[2022-09-26] MEDS ORDERED: Magnesium 2 GM/50 ML(in water) 1 GM in Premix Bag 1 BAG IVPB SCH (11:45)
[2022-09-26] MEDS: hydrALAZINE 20 MG/ML VIAL SLOW IVP PRN ×2 (12:52→21:23)
[2022-09-26] MEDS ORDERED: Digoxin 0.5 MG/2 ML AMP SLOW IVP SCH (14:00)
[2022-09-26 15:59] LABS: Anion Gap 17 mmol/L (10-20); BUN (Urea Nitrogen) 12 mg/dL (9.8-20.1); Calc. Creatinine Clearance 78 mL/min (70-130); Calcium 8.6 mg/dL (7.8-10.44); Carbon Dioxide 24 mmol/L (23-31); Chloride 99 mmol/L (98-107); Estimated GFR 80; Glucose 131 mg/dL (83-110); Magnesium 2.2 mg/dL (1.6-2.6); Phosphorus 3.4 mg/dL (2.3-4.7); Potassium 3.6 mmol/L (3.5-5.1); Sodium 136 mmol/L (136-145)
[2022-09-26] MEDS: Atorvastatin Calcium 10 MG TAB PO SCH (20:03)
[2022-09-26] MEDS: Digoxin 0.5 MG/2 ML AMP SLOW IVP SCH (20:03)
[2022-09-27] MEDS: Digoxin 0.5 MG/2 ML AMP SLOW IVP SCH (01:00)
[2022-09-27] MEDS: Piperacillin/Tazobactam 3.375 GM in Sodium Chloride 0.9% 100 ML IVPB SCH ×3 (01:00→17:42)
[2022-09-27] MEDS: Metoprolol Tartrate 25 MG TAB PO SCH ×3 (01:00→11:51)
[2022-09-27] MEDS: hydrALAZINE 20 MG/ML VIAL SLOW IVP PRN (02:09)
[2022-09-27] MEDS ORDERED: Losartan 25 MG TAB PO SCH ×2 (04:00→09:00)
[2022-09-27 04:34] LABS: Hemoglobin 10.2 g/dL (12.0-16.0); Mean Corpuscular HGB CONC 30.6 g/dL (32.0-36.0); Mean Corpuscular Hemoglobin 27.6 pg (27.0-31.0); Mean Corpuscular Volume 90.1 fl (78.0-98.0); Platelet Count 440 10x3/uL (130-400); RBC Distribution Width 15.7 % (11.5-14.5); Red Blood Cell (RBC) Count 3.69 mill/uL (4.20-5.40); White Blood Cell (WBC) Count 35.1 10x3/uL (4.8-10.8)
[2022-09-27 04:54] LABS: Anion Gap 15 mmol/L (10-20); BUN (Urea Nitrogen) 11 mg/dL (9.8-20.1); Calc. Creatinine Clearance 87 mL/min (70-130); Calcium 8.2 mg/dL (7.8-10.44); Carbon Dioxide 26 mmol/L (23-31); Chloride 100 mmol/L (98-107); Estimated GFR 90; Glucose 158 mg/dL (83-110); Magnesium 1.9 mg/dL (1.6-2.6); Phosphorus 3.2 mg/dL (2.3-4.7); Potassium 3.4 mmol/L (3.5-5.1); Sodium 138 mmol/L (136-145)
[2022-09-27] MEDS: Levothyroxine Sodium 125 MCG TAB PO SCH (05:28)
[2022-09-27] MEDS: Liothyronine Sodium 25 MCG TAB PO SCH (05:28)
[2022-09-27 05:37] LABS: Band 11 % (5-11); Lymphocytes 3 % (21-51); MDiff Complete? YES; Monocytes 3 % (0-10); Neutrophil 83 % (42-75)
[2022-09-27] MEDS ORDERED: Levothyroxine Sodium 125 MCG TAB PO SCH (06:00)
[2022-09-27] MEDS: Pantoprazole 40 MG VIAL IVP SCH ×2 (07:59→20:46)
[2022-09-27] MEDS ORDERED: Potassium Phosphate 30 MMOL in Sodium Chloride 0.9% 250 ML 250 ML IVPB SCH (08:00)
[2022-09-27] MEDS: Ondansetron PF 4 MG/2 ML Vial IVP PRN (08:31)
[2022-09-27] MEDS: Amiodarone 450 MG in Dextrose 5% in Water 250 ML IVPB SCH ×2 (11:51→20:31)
[2022-09-27] MEDS ORDERED: traMADol HCl 50 MG TAB PO PRN (13:37)
[2022-09-27] MEDS ORDERED: Morphine 2 MG/ML VIAL SLOW IVP PRN (13:37)
[2022-09-27] MEDS: Acetaminophen 500 MG TAB PO SCH ×2 (14:14→20:38)
[2022-09-27] MEDS: traMADol HCl 50 MG TAB PO SCH ×2 (14:14→20:42)
[2022-09-27] MEDS ORDERED: Furosemide 40 MG/4 ML VIAL SLOW IVP SCH (15:45)
[2022-09-27 16:47] LABS: Anion Gap 17 mmol/L (10-20); BUN (Urea Nitrogen) 13 mg/dL (9.8-20.1); Calc. Creatinine Clearance 77 mL/min (70-130); Calcium 8.1 mg/dL (7.8-10.44); Carbon Dioxide 23 mmol/L (23-31); Chloride 100 mmol/L (98-107); Estimated GFR 80; Glucose 205 mg/dL (83-110); Potassium 3.9 mmol/L (3.5-5.1); Sodium 136 mmol/L (136-145)
[2022-09-27] MEDS ORDERED: Potassium Chloride 20 MEQ TAB PO SCH (17:45)
[2022-09-27] MEDS: HumaLOG 300 UNITS/3 ML VIAL SC PRN ×2 (17:53→21:39)
[2022-09-27] MEDS: Atorvastatin Calcium 10 MG TAB PO SCH (20:41)
[2022-09-28] MEDS: Piperacillin/Tazobactam 3.375 GM in Sodium Chloride 0.9% 100 ML IVPB SCH ×3 (00:05→17:02)
[2022-09-28] MEDS: Acetaminophen 500 MG TAB PO SCH ×4 (02:16→20:26)
[2022-09-28] MEDS: traMADol HCl 50 MG TAB PO SCH ×4 (02:17→20:25)
[2022-09-28] MEDS: HumaLOG 300 UNITS/3 ML VIAL SC PRN (05:02)
[2022-09-28] MEDS: Levothyroxine Sodium 100 MCG TAB PO SCH (05:03)
[2022-09-28 06:15] LABS: Anion Gap 14 mmol/L (10-20); BUN (Urea Nitrogen) 15 mg/dL (9.8-20.1); Calc. Creatinine Clearance 79 mL/min (70-130); Calcium 8.1 mg/dL (7.8-10.44); Carbon Dioxide 29 mmol/L (23-31); Chloride 99 mmol/L (98-107); Estimated GFR 84; Glucose 171 mg/dL (83-110); Magnesium 1.7 mg/dL (1.6-2.6); Phosphorus 2.3 mg/dL (2.3-4.7); Potassium 3.6 mmol/L (3.5-5.1); Sodium 138 mmol/L (136-145)
[2022-09-28 07:08] LABS: Anisocytosis SLIGHT = 6-15 cells (100X) (0-5/hpf); Band 10 % (5-11); Hemoglobin 8.2 g/dL (12.0-16.0); Lymphocytes 7 % (21-51); MDiff Complete? YES; Mean Corpuscular HGB CONC 31.2 g/dL (32.0-36.0); Mean Corpuscular Hemoglobin 28.2 pg (27.0-31.0); Mean Corpuscular Volume 90.5 fl (78.0-98.0); Mean Platelet Volume 9.4 fL (7.4-10.4); Monocytes 2 % (0-10); Neutrophil 81 % (42-75); Platelet Count 374 10x3/uL (130-400); RBC Distribution Width 15.9 % (11.5-14.5); Red Blood Cell (RBC) Count 2.89 mill/uL (4.20-5.40); White Blood Cell (WBC) Count 21.3 10x3/uL (4.8-10.8)
[2022-09-28] MEDS ORDERED: Potassium Phosphate 30 MMOL in Sodium Chloride 0.9% 250 ML 250 ML IVPB SCH (07:30)
[2022-09-28] MEDS ORDERED: Magnesium 2 GM/50 ML(in water) 2 GM in Premix Bag 1 BAG IVPB SCH (07:30)
[2022-09-28] MEDS: Pantoprazole 40 MG VIAL IVP SCH ×2 (08:07→20:27)
[2022-09-28] MEDS: Losartan 25 MG TAB PO SCH (08:07)
[2022-09-28] MEDS ORDERED: Ibuprofen 800 MG TAB PO SCH (10:15)
[2022-09-28] MEDS: Amiodarone 200 MG TAB PO SCH ×2 (14:21→20:26)
[2022-09-28] MEDS: Atorvastatin Calcium 10 MG TAB PO SCH (22:07)
[2022-09-28] MEDS: Apixaban 5 MG TAB PO SCH (22:07)
[2022-09-29] MEDS: Piperacillin/Tazobactam 3.375 GM in Sodium Chloride 0.9% 100 ML IVPB SCH ×2 (00:44→08:42)
[2022-09-29] MEDS: Acetaminophen 500 MG TAB PO SCH ×4 (01:01→22:02)
[2022-09-29] MEDS: traMADol HCl 50 MG TAB PO SCH ×4 (01:04→22:00)
[2022-09-29 04:54] LABS: Anion Gap 15 mmol/L (10-20); BUN (Urea Nitrogen) 16 mg/dL (9.8-20.1); Calc. Creatinine Clearance 82 mL/min (70-130); Calcium 7.7 mg/dL (7.8-10.44); Carbon Dioxide 28 mmol/L (23-31); Chloride 97 mmol/L (98-107); Estimated GFR 88; Glucose 118 mg/dL (83-110); Magnesium 1.9 mg/dL (1.6-2.6); Phosphorus 2.9 mg/dL (2.3-4.7); Potassium 3.5 mmol/L (3.5-5.1); Sodium 136 mmol/L (136-145)
[2022-09-29 05:16] LABS: Band 23 % (5-11); Hemoglobin 9.3 g/dL (12.0-16.0); Lymphocytes 3 % (21-51); MDiff Complete? YES; Mean Corpuscular HGB CONC 30.6 g/dL (32.0-36.0); Mean Corpuscular Volume 91.6 fl (78.0-98.0); Mean Platelet Volume 9.4 fL (7.4-10.4); Neutrophil 74 % (42-75); Platelet Count 424 10x3/uL (130-400); RBC Distribution Width 16.3 % (11.5-14.5); Red Blood Cell (RBC) Count 3.32 mill/uL (4.20-5.40); Toxic Granulation SLIGHT; White Blood Cell (WBC) Count 58.5 10x3/uL (4.8-10.8)
[2022-09-29] MEDS: Levothyroxine Sodium 100 MCG TAB PO SCH (05:37)
[2022-09-29] MEDS ORDERED: Potassium Phosphate 30 MMOL, Magnesium Sulfate 2 GM in Sodium Chloride 0.9% 250 ML 250 ML IVPB SCH (07:45)
[2022-09-29] MEDS ORDERED: Magnesium 2 GM/50 ML(in water) 2 GM in Premix Bag 1 BAG IVPB SCH (07:45)
[2022-09-29] MEDS ORDERED: Iopamidol-370 76% 500 ML 1 ML ONE (08:36)
[2022-09-29] MEDS ORDERED: GASTROGRAFIN 30 ML BOT ONE (08:36)
[2022-09-29] MEDS: Losartan 25 MG TAB PO SCH (08:41)
[2022-09-29] MEDS: Apixaban 5 MG TAB PO SCH ×2 (08:42→21:57)
[2022-09-29] MEDS: Pantoprazole 40 MG VIAL IVP SCH ×2 (08:42→21:58)
[2022-09-29] MEDS: Amiodarone 200 MG TAB PO SCH ×3 (08:42→21:57)
[2022-09-29 13:35] LABS: Hemoglobin 9.5 g/dL (12.0-16.0); Mean Corpuscular Hemoglobin 28.3 pg (27.0-31.0); Mean Corpuscular Volume 94.2 fl (78.0-98.0); Mean Platelet Volume 9.7 fL (7.4-10.4); Platelet Count 450 10x3/uL (130-400); RBC Distribution Width 16.8 % (11.5-14.5); Red Blood Cell (RBC) Count 3.37 mill/uL (4.20-5.40); White Blood Cell (WBC) Count 59.5 10x3/uL (4.8-10.8)
[2022-09-29 13:51] LABS: Hypochromia SLIGHT = 6-15 cells (100X) (0-5/hpf); Lymphocytes 4 % (21-51); MDiff Complete? YES; Monocytes 5 % (0-10); Neutrophil 91 % (42-75); Ovalocytes SLIGHT = 2-5 cells (100X) (0-1/hpf); Platelet Morphology Comment Appears Increased; Polychromasia SLIGHT = 2-3 cells (100X) (0-2/hpf); Target Cells SLIGHT = 2-5 cells (100X) (0-1/hpf)
[2022-09-29 14:26] LABS: ALT (SGPT) 8 U/L (8-55); AST (SGOT) 16 U/L (5-34); Alkaline Phosphatase 82 U/L (40-110); Anion Gap 17 mmol/L (10-20); BUN (Urea Nitrogen) 17 mg/dL (9.8-20.1); Bilirubin, Total 0.7 mg/dL (0.2-1.2); Calc. Creatinine Clearance 83 mL/min (70-130); Calcium 7.9 mg/dL (7.8-10.44); Carbon Dioxide 21 mmol/L (23-31); Chloride 98 mmol/L (98-107); Estimated GFR 88; Globulin 3.6 g/dL (2.4-3.5); Glucose 105 mg/dL (83-110); Protein, Total 5.6 g/dL (5.8-8.1); Sodium 132 mmol/L (136-145)
[2022-09-29] MEDS: Ondansetron PF 4 MG/2 ML Vial IVP PRN (14:39)
[2022-09-29] MEDS: Micafungin 100 MG in Sodium Chloride 0.9% 100 ML IVPB SCH (16:37)
[2022-09-29] MEDS ORDERED: Meropenem 1 GM in Sodium Chloride 0.9% 100 ML IVPB SCH (17:00)
[2022-09-29] MEDS: D5W-AA 4.25% with LYTES 1,000 ML IV SCH (17:37)
[2022-09-29] MEDS: Vancomycin 1.5 GRAM/300 ML BAG 1.5 GM in Premix Bag 1 BAG IVPB SCH (17:38)
[2022-09-29] MEDS ORDERED: Vancomycin 1 GM in Premix Bag 1 BAG IVPB SCH (21:00)
[2022-09-29] MEDS: Atorvastatin Calcium 10 MG TAB PO SCH (21:57)
[2022-09-29] MEDS ORDERED: Meropenem 500 MG in Sodium Chloride 0.9% 100 ML IVPB SCH (22:00)
[2022-09-29] MEDS: hydrALAZINE 20 MG/ML VIAL SLOW IVP PRN (23:22)
[2022-09-30] MEDS: traMADol HCl 50 MG TAB PO SCH ×3 (01:53→12:54)
[2022-09-30] MEDS: Meropenem 1 GM in Sodium Chloride 0.9% 100 ML IVPB SCH ×3 (01:54→16:40)
[2022-09-30] MEDS: Acetaminophen 500 MG TAB PO SCH ×3 (01:54→12:55)
[2022-09-30] MEDS: hydrALAZINE 20 MG/ML VIAL SLOW IVP PRN ×2 (04:34→14:01)
[2022-09-30 05:33] LABS: Anion Gap 14 mmol/L (10-20); BUN (Urea Nitrogen) 18 mg/dL (9.8-20.1); Calc. Creatinine Clearance 89 mL/min (70-130); Calcium 8.1 mg/dL (7.8-10.44); Carbon Dioxide 27 mmol/L (23-31); Chloride 98 mmol/L (98-107); Estimated GFR 91; Glucose 121 mg/dL (83-110); Magnesium 2.1 mg/dL (1.6-2.6); Potassium 3.6 mmol/L (3.5-5.1); Sodium 135 mmol/L (136-145)
[2022-09-30 05:39] LABS: Hemoglobin 8.8 g/dL (12.0-16.0); Mean Corpuscular HGB CONC 30.8 g/dL (32.0-36.0); Mean Corpuscular Hemoglobin 28.7 pg (27.0-31.0); Mean Corpuscular Volume 93.1 fl (78.0-98.0); Mean Platelet Volume 9.7 fL (7.4-10.4); Platelet Count 465 10x3/uL (130-400); RBC Distribution Width 16.7 % (11.5-14.5); Red Blood Cell (RBC) Count 3.06 mill/uL (4.20-5.40); White Blood Cell (WBC) Count 46.1 10x3/uL (4.8-10.8)
[2022-09-30] MEDS: Levothyroxine Sodium 100 MCG TAB PO SCH (06:20)
[2022-09-30 06:22] LABS: Anisocytosis SLIGHT = 6-15 cells (100X) (0-5/hpf); Crenated RBC SLIGHT = 1-5 cells (100X) (None Seen); Hypochromia SLIGHT = 6-15 cells (100X) (0-5/hpf); Lymphocytes 2 % (21-51); MDiff Complete? YES; Monocytes 1 % (0-10); Neutrophil 97 % (42-75); Platelet Morphology Comment Appears Increased; Polychromasia SLIGHT = 2-3 cells (100X) (0-2/hpf); Schistocytes SLIGHT = 2-5 cells (100X) (0-1/hpf); Toxic Granulation MODERATE
[2022-09-30] MEDS: Amiodarone 200 MG TAB PO SCH ×3 (08:07→20:02)
[2022-09-30] MEDS: Pantoprazole 40 MG VIAL IVP SCH ×2 (08:07→20:02)
[2022-09-30] MEDS: Losartan 25 MG TAB PO SCH (08:07)
[2022-09-30] MEDS: Apixaban 5 MG TAB PO SCH ×2 (08:08→20:02)
[2022-09-30] MEDS: D5W-AA 4.25% with LYTES 1,000 ML IV SCH (12:54)
[2022-09-30] MEDS ORDERED: Acetaminophen/Codeine 30-300mg Tablet PO PRN (14:48)
[2022-09-30] MEDS ORDERED: Amlodipine 5 MG TAB PO SCH (15:15)
[2022-09-30] MEDS: Micafungin 100 MG in Sodium Chloride 0.9% 100 ML IVPB SCH (15:40)
[2022-09-30] MEDS: HumaLOG 300 UNITS/3 ML VIAL SC PRN (17:24)
[2022-09-30] MEDS: Vancomycin 1.5 GRAM/300 ML BAG 1.5 GM in Premix Bag 1 BAG IVPB SCH (18:12)
[2022-09-30] MEDS: Acetaminophen 325 MG TAB PO SCH ×2 (18:13→23:30)
[2022-09-30] MEDS: Atorvastatin Calcium 10 MG TAB PO SCH (20:02)
[2022-10-01] MEDS: Meropenem 1 GM in Sodium Chloride 0.9% 100 ML IVPB SCH ×3 (00:07→22:21)
[2022-10-01] MEDS: Acetaminophen 325 MG TAB PO SCH (04:46)
[2022-10-01 04:54] LABS: Mean Corpuscular HGB CONC 30.2 g/dL (32.0-36.0); Mean Corpuscular Hemoglobin 27.8 pg (27.0-31.0); Mean Corpuscular Volume 91.9 fl (78.0-98.0); Mean Platelet Volume 9.6 fL (7.4-10.4); Platelet Count 489 10x3/uL (130-400); RBC Distribution Width 16.6 % (11.5-14.5); Red Blood Cell (RBC) Count 2.88 mill/uL (4.20-5.40); White Blood Cell (WBC) Count 28.4 10x3/uL (4.8-10.8)
[2022-10-01 05:15] LABS: Anion Gap 9 mmol/L (10-20); BUN (Urea Nitrogen) 20 mg/dL (9.8-20.1); Calc. Creatinine Clearance 104 mL/min (70-130); Calcium 8.1 mg/dL (7.8-10.44); Carbon Dioxide 30 mmol/L (23-31); Chloride 97 mmol/L (98-107); Estimated GFR 93; Glucose 130 mg/dL (83-110); Potassium 3.7 mmol/L (3.5-5.1); Sodium 132 mmol/L (136-145)
[2022-10-01 05:22] LABS: Band 4 % (5-11); Lymphocytes 6 % (21-51); MDiff Complete? YES; Monocytes 3 % (0-10); Neutrophil 87 % (42-75); Platelet Morphology Comment Appears Increased
[2022-10-01] MEDS: Levothyroxine Sodium 100 MCG TAB PO SCH (05:52)
[2022-10-01] MEDS: Senokot S 8.6-50 MG TAB PO SCH ×2 (08:17→23:13)
[2022-10-01] MEDS: Sodium Chloride 1 GM TAB PO SCH ×2 (08:18→18:20)
[2022-10-01] MEDS: Losartan 25 MG TAB PO SCH (08:19)
[2022-10-01] MEDS: Apixaban 5 MG TAB PO SCH ×2 (08:19→23:16)
[2022-10-01] MEDS: Amiodarone 200 MG TAB PO SCH ×3 (08:19→23:10)
[2022-10-01] MEDS: Pantoprazole 40 MG VIAL IVP SCH ×2 (08:20→23:10)
[2022-10-01] MEDS ORDERED: Gabapentin 100 MG CAP PO SCH (09:00)
[2022-10-01] MEDS ORDERED: Amlodipine 5 MG TAB PO SCH (09:00)
[2022-10-01] MEDS ORDERED: Morphine 2 MG/ML VIAL SLOW IVP PRN (09:18)
[2022-10-01] MEDS ORDERED: Morphine 4 MG/ML VIAL ONE (09:21)
[2022-10-01] MEDS: hydrALAZINE 20 MG/ML VIAL SLOW IVP PRN (09:31)
[2022-10-01] MEDS ORDERED: Morphine 2 MG/ML VIAL SLOW IVP SCH (10:15)
[2022-10-01] MEDS: Acetaminophen 650 MG/20.3 ML UDCUP PO SCH ×3 (12:53→23:10)
[2022-10-01] MEDS: Ondansetron PF 4 MG/2 ML Vial IVP PRN (12:59)
[2022-10-01 13:00] LABS: Hemoglobin 10.3 g/dL (12.0-16.0)
[2022-10-01 13:18] LABS: Hemoglobin 10.3 g/dL (12.0-16.0); Mean Corpuscular HGB CONC 30.6 g/dL (32.0-36.0); Mean Corpuscular Hemoglobin 28.1 pg (27.0-31.0); Mean Corpuscular Volume 91.8 fl (78.0-98.0); Mean Platelet Volume 9.8 fL (7.4-10.4); Platelet Count 577 10x3/uL (130-400); RBC Distribution Width 16.8 % (11.5-14.5); Red Blood Cell (RBC) Count 3.66 mill/uL (4.20-5.40); White Blood Cell (WBC) Count 31.7 10x3/uL (4.8-10.8)
[2022-10-01] MEDS ORDERED: Sodium Chloride 0.9% 1,000 ML IV SCH (13:30)
[2022-10-01 13:32] LABS: Anisocytosis SLIGHT = 6-15 cells (100X) (0-5/hpf); Band 18 % (5-11); Large Platelets SLIGHT; Lymphocytes 2 % (21-51); MDiff Complete? YES; Metamyelocyte 1 % (0-0); Monocytes 1 % (0-10); Neutrophil 78 % (42-75); Ovalocytes SLIGHT = 2-5 cells (100X) (0-1/hpf); Platelet Morphology Comment Appears Increased; Polychromasia SLIGHT = 2-3 cells (100X) (0-2/hpf); Schistocytes SLIGHT = 2-5 cells (100X) (0-1/hpf); Toxic Granulation SLIGHT; Vacuoles SLIGHT
[2022-10-01 14:06] LABS: Lactic Acid 5.4 mmol/L (0.5-2.2)
[2022-10-01 14:10] LABS: Anion Gap 17 mmol/L (10-20); BUN (Urea Nitrogen) 22 mg/dL (9.8-20.1); Calc. Creatinine Clearance 74 mL/min (70-130); Calcium 8.2 mg/dL (7.8-10.44); Carbon Dioxide 23 mmol/L (23-31); Chloride 97 mmol/L (98-107); Estimated GFR 73; Glucose 143 mg/dL (83-110); Potassium 4.3 mmol/L (3.5-5.1); Sodium 133 mmol/L (136-145)
[2022-10-01] MEDS ORDERED: Sodium Chloride 0.9% 500 ML IV SCH ×4 (14:15→23:30)
[2022-10-01] MEDS ORDERED: Iopamidol-370 76% 500 ML 1 ML ONE (15:46)
[2022-10-01] MEDS ORDERED: GASTROGRAFIN 30 ML BOT ONE (15:46)
[2022-10-01] MEDS: D5W-AA 4.25% with LYTES 1,000 ML IV SCH ×2 (15:47→23:11)
[2022-10-01] MEDS ORDERED: Fentanyl 250 MCG/5 ML VIAL ONE (17:55)
[2022-10-01] MEDS ORDERED: Norepinephrine 4 MG/4 ML VIAL ONE (17:56)
[2022-10-01 18:07] LABS: Vancomycin, Trough 12.4 ug/mL
[2022-10-01] MEDS ORDERED: Succinylcholine Chloride 100 MG/5 ML SYRINGE FS ONE (18:21)
[2022-10-01] MEDS ORDERED: Rocuronium Bromide 10 MG/ML (10ML VIAL) ONE (18:21)
[2022-10-01] MEDS ORDERED: Albumin 5% 500 ML ONE (18:22)
[2022-10-01 18:23] LABS: INR-International Normal Ratio 2.5; PTT 51.6 sec (22.9-36.1); Prothrombin Time 28.3 sec (12.0-14.7)
[2022-10-01] MEDS ORDERED: VANCOMYCIN 1.75 GM/500 ML BAG 1.75 GM in Premix Bag 1 BAG IVPB SCH (19:00)
[2022-10-01] MEDS ORDERED: Neomycin-Polymyxin 1 ML AMP ONE (19:17)
[2022-10-01] MEDS ORDERED: FENTANYL 500 MCG/10 ML VIAL 2,000 MCG in Sodium Chloride 0.9% 60 ML IV PRN (21:05)
[2022-10-01] MEDS ORDERED: Fentanyl CADD 100 ML IV SCH (21:15)
[2022-10-01] MEDS ORDERED: Dexmedetomidine In 0.9 % NaCl 100 ML IVPB SCH (21:15)
[2022-10-01] MEDS ORDERED: Calcium Chloride 1 GM/10 ML Abboject SYRINGE IVP SCH ×2 (21:15→23:00)
[2022-10-01] MEDS ORDERED: ALBUMIN 5% 25 GM/500 ML BAG IVPB SCH (21:30)
[2022-10-01 21:46] LABS: Actual Bicarbonate (HCO3a) 19.9 mEq/L (22-28); CO2 Tension 27.7 mmHg (35.0-45.0); Calcium, Ionized (arterial) 1.02 mmol/L (1.12-1.30); Carboxyhemoglobin (COHb) 0.7 gm% (0.0-3.0); Hemoglobin (Hb) 8.8 g/dL (12.0-16.0); O2 Tension (PaO2), arterial 335.8 mmHg (> 70.0); Potassium - ABG Lab 3.88 mmol/L (3.70-5.30); pH, Arterial 7.47 (7.35-7.45)
[2022-10-01 21:51] LABS: ALV-art Gradient 342.575 mmHg (0-20); Puncture Site LINE
[2022-10-01] MEDS: Micafungin 100 MG in Sodium Chloride 0.9% 100 ML IVPB SCH (22:20)
[2022-10-01] MEDS: Vancomycin 1.5 GRAM/300 ML BAG 1.5 GM in Premix Bag 1 BAG IVPB SCH (22:23)
[2022-10-01] MEDS: Atorvastatin Calcium 10 MG TAB PO SCH (23:10)
[2022-10-01 23:32] LABS: Hemoglobin 8.1 g/dL (12.0-16.0); Mean Corpuscular HGB CONC 30.5 g/dL (32.0-36.0); Mean Corpuscular Hemoglobin 28.3 pg (27.0-31.0); Mean Corpuscular Volume 92.8 fl (78.0-98.0); Mean Platelet Volume 9.9 fL (7.4-10.4); Platelet Count 498 10x3/uL (130-400); Red Blood Cell (RBC) Count 2.85 mill/uL (4.20-5.40); White Blood Cell (WBC) Count 30.3 10x3/uL (4.8-10.8)
[2022-10-01 23:47] LABS: Band 10 % (5-11); Hypochromia SLIGHT = 6-15 cells (100X) (0-5/hpf); Lymphocytes 9 % (21-51); MDiff Complete? YES; Monocytes 25 % (0-10); Neutrophil 53 % (42-75); Platelet Morphology Comment Appears Increased; Reactive Lymphocytes 3 % (0-10)
[2022-10-01] MEDS: NOREPINEPHRINE 8 MG/250 ML-D5W 250 ML IVPB SCH (23:48)
[2022-10-02] MEDS: Sodium Chloride 1 GM TAB PO SCH ×4 (00:43→23:00)
[2022-10-02] MEDS: Meropenem 1 GM in Sodium Chloride 0.9% 100 ML IVPB SCH ×3 (01:23→18:40)
[2022-10-02 01:24] LABS: Bacteria/HPF None Seen HPF (None Seen); Bilirubin Negative (Negative); Blood, Urine Negative (Negative); CAUTI Indications for Culture Alt mental st,lethar; Clarity Clear (Clear); Glucose, Urine (Dipstick) Normal (Negative); Ketone, Urine Trace mg/dL (Negative); Leukocyte Negative Leu/uL (Negative); Nitrite Negative (Negative); Protein, Urine (Dipstick) 20 mg/dL (Neg-Trace); Specific Gravity, Urine 1.048 (1.002-1.036); Squamous Epithelial 0-3 HPF (0-3); Urobilinogen 3 mg/dL (Less than 2); WBC/HPF 0-3 HPF (0-3)
[2022-10-02 01:25] LABS: Urine Culture Reflex No No
[2022-10-02 02:05] LABS: Hemoglobin 6.4 g/dL (12.0-16.0); Mean Corpuscular HGB CONC 30.9 g/dL (32.0-36.0); Mean Corpuscular Hemoglobin 28.5 pg (27.0-31.0); Mean Corpuscular Volume 92.2 fl (78.0-98.0); Mean Platelet Volume 10.1 fL (7.4-10.4); Platelet Count 469 10x3/uL (130-400); RBC Distribution Width 16.8 % (11.5-14.5); Red Blood Cell (RBC) Count 2.25 mill/uL (4.20-5.40); White Blood Cell (WBC) Count 36.4 10x3/uL (4.8-10.8)
[2022-10-02 02:16] LABS: INR-International Normal Ratio 3.3; PTT 49.5 sec (22.9-36.1); Prothrombin Time 34.7 sec (12.0-14.7)
[2022-10-02 02:29] LABS: Chloride 105 mmol/L (98-107); Potassium 4.3 mmol/L (3.5-5.1); Sodium 129 mmol/L (136-145)
[2022-10-02 02:30] LABS: Glucose 165 mg/dL (83-110)
[2022-10-02 02:32] LABS: Anion Gap 14 mmol/L (10-20); Carbon Dioxide 14 mmol/L (23-31)
[2022-10-02 02:34] LABS: BUN (Urea Nitrogen) 25 mg/dL (9.8-20.1); Calc. Creatinine Clearance 80 mL/min (70-130); Estimated GFR 80
[2022-10-02 02:35] LABS: Lactic Acid 6.8 mmol/L (0.5-2.2)
[2022-10-02 02:41] LABS: Phosphorus 4.1 mg/dL (2.3-4.7)
[2022-10-02 02:43] LABS: Band 30 % (5-11); Burr Cells SLIGHT = 2-5 cells (100X) (0-1/hpf); Elliptocytes SLIGHT = 2-5 cells (100X) (0-1/hpf); Hypochromia SLIGHT = 6-15 cells (100X) (0-5/hpf); Lymphocytes 10 % (21-51); MDiff Complete? YES; Metamyelocyte 1 % (0-0); Monocytes 3 % (0-10); Neutrophil 56 % (42-75); Platelet Morphology Comment Appears Increased; Polychromasia SLIGHT = 2-3 cells (100X) (0-2/hpf); Tear Drops SLIGHT = 2-5 cells (100X) (0-1/hpf)
[2022-10-02] MEDS ORDERED: Sodium Chloride 0.9% 1,000 ML IV SCH (03:00)
[2022-10-02] MEDS ORDERED: Hydrocortisone Sod Succ/PF 100 mg/2 ml Vial IVP SCH (03:30)
[2022-10-02] MEDS: Vasopressin 20 UNIT, Admixture Fee 1 EACH in Sodium Chloride 0.9% 50 ML IV SCH ×4 (03:34→23:34)
[2022-10-02 04:44] LABS: Base Excess (BEa) -15.4 mEq/L (-2.0 to +3.0); CO2 Tension 27.5 mmHg (35.0-45.0); Calcium, Ionized (arterial) 1.01 mmol/L (1.12-1.30); Carboxyhemoglobin (COHb) 0.3 gm% (0.0-3.0); Hemoglobin (Hb) 9.6 g/dL (12.0-16.0); O2 Tension (PaO2), arterial 113.1 mmHg (> 70.0); Potassium - ABG Lab 4.39 mmol/L (3.70-5.30); pH, Arterial 7.22 (7.35-7.45)
[2022-10-02] MEDS ORDERED: Calcium Chloride 1 GM/10 ML Abboject SYRINGE IVP SCH (04:45)
[2022-10-02 04:50] LABS: Puncture Site ARTERIAL LINE
[2022-10-02 04:51] LABS: ALV-art Gradient 209.025 mmHg (0-20)
[2022-10-02 04:59] LABS: Hemoglobin 9.4 g/dL (12.0-16.0); Mean Corpuscular HGB CONC 30.5 g/dL (32.0-36.0); Mean Corpuscular Hemoglobin 29.2 pg (27.0-31.0); Mean Platelet Volume 10.6 fL (7.4-10.4); Platelet Count 433 10x3/uL (130-400); RBC Distribution Width 15.1 % (11.5-14.5); Red Blood Cell (RBC) Count 3.23 mill/uL (4.20-5.40); White Blood Cell (WBC) Count 41.5 10x3/uL (4.8-10.8)
[2022-10-02] MEDS ORDERED: Lactated Ringer's 1,000 ML IV SCH (05:00)
[2022-10-02] MEDS ORDERED: Sodium Bicarb 50 MEQ/50 ML VIAL IVP SCH ×2 (05:00→08:00)
[2022-10-02 05:03] LABS: Band 68 % (5-11); Hypochromia SLIGHT = 6-15 cells (100X) (0-5/hpf); Lymphocytes 11 % (21-51); MDiff Complete? YES; Metamyelocyte 2 % (0-0); Monocytes 2 % (0-10); Neutrophil 16 % (42-75); Platelet Morphology Comment Appears Adequate; Reactive Lymphocytes 1 % (0-10)
[2022-10-02] MEDS: NOREPINEPHRINE 8 MG/250 ML-D5W 250 ML IVPB SCH ×3 (06:11→18:03)
[2022-10-02] MEDS: Lactated Ringer's 1,000 ML IV SCH ×2 (06:12→16:09)
[2022-10-02] MEDS: Acetaminophen 650 MG/20.3 ML UDCUP PO SCH ×2 (06:13→11:40)
[2022-10-02] MEDS: Levothyroxine Sodium 100 MCG TAB PO SCH (06:13)
[2022-10-02 07:24] LABS: Anion Gap 21 mmol/L (10-20); BUN (Urea Nitrogen) 25 mg/dL (9.8-20.1); Calc. Creatinine Clearance 72 mL/min (70-130); Calcium 7.8 mg/dL (7.8-10.44); Carbon Dioxide 9 mmol/L (23-31); Chloride 106 mmol/L (98-107); Estimated GFR 71; Glucose 141 mg/dL (83-110); Magnesium 2.1 mg/dL (1.6-2.6); Phosphorus 5.6 mg/dL (2.3-4.7); Potassium 4.7 mmol/L (3.5-5.1); Sodium 131 mmol/L (136-145)
[2022-10-02 08:35] LABS: Actual Bicarbonate (HCO3a) 18.4 mEq/L (22-28); Base Excess (BEa) -4.5 mEq/L (-2.0 to +3.0); Carboxyhemoglobin (COHb) 0.8 gm% (0.0-3.0); Hemoglobin (Hb) 8.5 g/dL (12.0-16.0); O2 Tension (PaO2), arterial 108.7 mmHg (> 70.0); Potassium - ABG Lab 3.76 mmol/L (3.70-5.30); pH, Arterial 7.47 (7.35-7.45)
[2022-10-02 08:36] LABS: Puncture Site Arterial Line
[2022-10-02] MEDS ORDERED: Amlodipine 10 MG TAB PO SCH (09:00)
[2022-10-02] MEDS ORDERED: Apixaban 5 MG TAB PO SCH (09:00)
[2022-10-02] MEDS ORDERED: Lactated Ringer's 500 ML IV SCH (09:30)
[2022-10-02 09:54] VITALS: BMI 33.8
[2022-10-02] MEDS: Hydrocortisone Sod Succ/PF 100 mg/2 ml Vial IVP SCH ×2 (10:00→18:35)
[2022-10-02] MEDS: Pantoprazole 40 MG VIAL IVP SCH ×2 (10:00→21:19)
[2022-10-02] MEDS: Senokot S 8.6-50 MG TAB PO SCH (10:02)
[2022-10-02] MEDS: Sodium Bicarbonate 150 MEQ in Dextrose 5% in Water 1,000 ML IV SCH ×2 (10:11→17:47)
[2022-10-02] MEDS: Amiodarone 200 MG TAB PO SCH ×3 (10:22→21:34)
[2022-10-02] MEDS ORDERED: Albumin 5% 500 ML ONE (10:49)
[2022-10-02 11:36] LABS: Hemoglobin 7.8 g/dL (12.0-16.0); Mean Corpuscular HGB CONC 31.2 g/dL (32.0-36.0); Mean Platelet Volume 10.2 fL (7.4-10.4); Platelet Count 321 10x3/uL (130-400); RBC Distribution Width 14.9 % (11.5-14.5); White Blood Cell (WBC) Count 44.6 10x3/uL (4.8-10.8)
[2022-10-02 11:54] LABS: Band 39 % (5-11); Burr Cells SLIGHT = 2-5 cells (100X) (0-1/hpf); Lymphocytes 6 % (21-51); MDiff Complete? YES; Metamyelocyte 1 % (0-0); Monocytes 5 % (0-10); Neutrophil 49 % (42-75); Platelet Morphology Comment Appears Adequate; Polychromasia SLIGHT = 2-3 cells (100X) (0-2/hpf); Schistocytes SLIGHT = 2-5 cells (100X) (0-1/hpf)
[2022-10-02 12:02] LABS: INR-International Normal Ratio 4.2; PTT 53.9 sec (22.9-36.1); Prothrombin Time 42.5 sec (12.0-14.7)
[2022-10-02] MEDS ORDERED: LYTES IN TPN IVPB PRN (12:57)
[2022-10-02 13:47] LABS: Cardiac Risk 2.7 (Less than 4.5)
[2022-10-02] MEDS: [UNRECOGNIZED DRUG - OTHER] IV SCH (15:57)
[2022-10-02] MEDS: SODIUM CHLORIDE IV SCH (15:57)
[2022-10-02] MEDS: POTASSIUM CHLORIDE IV SCH (15:57)
[2022-10-02] MEDS: SODIUM ACETATE IV SCH (15:57)
[2022-10-02 16:39] LABS: Hemoglobin 5.4 g/dL (12.0-16.0); Mean Corpuscular HGB CONC 31.7 g/dL (32.0-36.0); Mean Corpuscular Hemoglobin 29.7 pg (27.0-31.0); Mean Corpuscular Volume 93.8 fl (78.0-98.0); Mean Platelet Volume 10.2 fL (7.4-10.4); Platelet Count 280 10x3/uL (130-400); Red Blood Cell (RBC) Count 1.82 mill/uL (4.20-5.40); White Blood Cell (WBC) Count 44.5 10x3/uL (4.8-10.8)
[2022-10-02 16:58] LABS: Anion Gap 27 mmol/L (10-20); BUN (Urea Nitrogen) 27 mg/dL (9.8-20.1); Calc. Creatinine Clearance 52 mL/min (70-130); Calcium 8.2 mg/dL (7.8-10.44); Chloride 103 mmol/L (98-107); Estimated GFR 48; Glucose 101 mg/dL (83-110); Potassium 4.7 mmol/L (3.5-5.1); Sodium 134 mmol/L (136-145)
[2022-10-02 17:05] LABS: Magnesium 2.1 mg/dL (1.6-2.6); Phosphorus 5.7 mg/dL (2.3-4.7)
[2022-10-02 17:06] LABS: Anisocytosis SLIGHT = 6-15 cells (100X) (0-5/hpf); Band 31 % (5-11); Lymphocytes 4 % (21-51); MDiff Complete? YES; Metamyelocyte 2 % (0-0); Monocytes 8 % (0-10); Myelocyte 1 % (0-0); Neutrophil 54 % (42-75); Ovalocytes SLIGHT = 2-5 cells (100X) (0-1/hpf); Platelet Morphology Comment Appears Adequate; Polychromasia MODERATE = 3-4 cells (100X) (0-2/hpf); Toxic Granulation SLIGHT
[2022-10-02 17:10] LABS: Carbon Dioxide 9 mmol/L (23-31)
[2022-10-02] MEDS: Micafungin 100 MG in Sodium Chloride 0.9% 100 ML IVPB SCH (17:26)
[2022-10-02] MEDS ORDERED: Dextrose 50% Abboject 50 ML SYRINGE SLOW IVP PRN (17:31)
[2022-10-02] MEDS ORDERED: Dextrose 5% in Water 1,000 ML IV PRN (17:31)
[2022-10-02] MEDS ORDERED: Insulin Regular 300 UNITS/3 ML VIAL SC PRN (17:31)
[2022-10-02] MEDS: Ipratropium/Albuterol 3 ML NEB NEB SCH (18:44)
[2022-10-02 21:24] LABS: Hemoglobin 8.1 g/dL (12.0-16.0); Mean Corpuscular HGB CONC 33.1 g/dL (32.0-36.0); Mean Corpuscular Volume 93.7 fl (78.0-98.0); Mean Platelet Volume 10.8 fL (7.4-10.4); Platelet Count 183 10x3/uL (130-400); RBC Distribution Width 13.4 % (11.5-14.5)
[2022-10-02 21:47] LABS: Band 30 % (5-11); MDiff Complete? YES; Metamyelocyte 2 % (0-0); Monocytes 3 % (0-10); Neutrophil 65 % (42-75); Platelet Morphology Comment Appears Adequate; RBC Morphology Normal; Toxic Granulation SLIGHT; White Blood Cell (WBC) Count 39.6 10x3/uL (4.8-10.8)
[2022-10-02] MEDS ORDERED: Sodium Bicarbonate 150 MEQ in Dextrose 5% in Water 1,000 ML IV SCH (23:47)
[2022-10-03] MEDS: Meropenem 1 GM in Sodium Chloride 0.9% 100 ML IVPB SCH ×3 (01:35→17:52)
[2022-10-03 01:40] LABS: Band 34 % (5-11); Hemoglobin 6.3 g/dL (12.0-16.0); Lymphocytes 9 % (21-51); MDiff Complete? YES; Mean Corpuscular Hemoglobin 31.5 pg (27.0-31.0); Mean Corpuscular Volume 92.5 fl (78.0-98.0); Mean Platelet Volume 10.7 fL (7.4-10.4); Metamyelocyte 1 % (0-0); Monocytes 2 % (0-10); Neutrophil 54 % (42-75); Nucleated RBC 1 % (0); Platelet Count 167 10x3/uL (130-400); Platelet Morphology Comment Appears Adequate; RBC Distribution Width 13.4 % (11.5-14.5); RBC Morphology Normal; Red Blood Cell (RBC) Count 1.99 mill/uL (4.20-5.40); White Blood Cell (WBC) Count 37.5 10x3/uL (4.8-10.8)
[2022-10-03] MEDS: NOREPINEPHRINE 8 MG/250 ML-D5W 250 ML IVPB SCH ×3 (01:43→16:42)
[2022-10-03 02:12] LABS: Phosphorus 5.1 mg/dL (2.3-4.7)
[2022-10-03 02:15] LABS: Anion Gap 25 mmol/L (10-20); BUN (Urea Nitrogen) 30 mg/dL (9.8-20.1); Calc. Creatinine Clearance 42 mL/min (70-130); Calcium 7.8 mg/dL (7.8-10.44); Carbon Dioxide 11 mmol/L (23-31); Chloride 101 mmol/L (98-107); Estimated GFR 37; Glucose 250 mg/dL (83-110); Magnesium 2.1 mg/dL (1.6-2.6); Potassium 4.5 mmol/L (3.5-5.1); Sodium 132 mmol/L (136-145)
[2022-10-03] MEDS ORDERED: Calcium Chloride 1 GM/10 ML Abboject SYRINGE IVP SCH ×2 (02:30→20:00)
[2022-10-03] MEDS ORDERED: Digoxin 0.5 MG/2 ML AMP SLOW IVP SCH ×3 (02:53→17:00)
[2022-10-03] MEDS ORDERED: Phytonadione 10 MG in Sodium Chloride 0.9% 50 ML IVPB SCH ×2 (03:00→12:15)
[2022-10-03 03:09] LABS: PTT 54.9 sec (22.9-36.1); Prothrombin Time 57.3 sec (12.0-14.7)
[2022-10-03 03:21] LABS: INR-International Normal Ratio 6.1
[2022-10-03 03:44] LABS: Lactic Acid 17.2 mmol/L (0.5-2.2)
[2022-10-03] MEDS ORDERED: HUM PROTHROMBIN CPLX(PCC)4FACT 2,000 UNIT in Admixture Fee 80 EACH IV SCH (04:30)
[2022-10-03 04:35] LABS: Band 31 % (5-11); Burr Cells SLIGHT = 2-5 cells (100X) (0-1/hpf); Hemoglobin 6.7 g/dL (12.0-16.0); Lymphocytes 6 % (21-51); MDiff Complete? YES; Mean Corpuscular HGB CONC 34.5 g/dL (32.0-36.0); Mean Corpuscular Hemoglobin 32.2 pg (27.0-31.0); Mean Corpuscular Volume 93.3 fl (78.0-98.0); Mean Platelet Volume 10.9 fL (7.4-10.4); Metamyelocyte 2 % (0-0); Monocytes 6 % (0-10); Neutrophil 55 % (42-75); Nucleated RBC 1 % (0); Ovalocytes SLIGHT = 2-5 cells (100X) (0-1/hpf); Platelet Count 152 10x3/uL (130-400); Platelet Morphology Comment Appears Adequate; RBC Distribution Width 13.5 % (11.5-14.5); Red Blood Cell (RBC) Count 2.08 mill/uL (4.20-5.40); Tear Drops SLIGHT = 2-5 cells (100X) (0-1/hpf); White Blood Cell (WBC) Count 39.6 10x3/uL (4.8-10.8)
[2022-10-03] MEDS: Amiodarone 150 MG, Admixture Fee 1 EACH in Dextrose 5% in Water 100 ML IVPB SCH ×2 (04:57→07:32)
[2022-10-03] MEDS: Levothyroxine Sodium 100 MCG TAB PO SCH (05:29)
[2022-10-03 06:41] LABS: Lactic Acid 11.8 mmol/L (0.5-2.2)
[2022-10-03] MEDS ORDERED: Vancomycin Dose by Levels Sliding Scale (Wt 71-99) FS SCH (06:45)
[2022-10-03 06:52] LABS: Band 16 % (5-11); Hemoglobin 8.5 g/dL (12.0-16.0); Lymphocytes 7 % (21-51); MDiff Complete? YES; Mean Corpuscular HGB CONC 33.5 g/dL (32.0-36.0); Mean Corpuscular Hemoglobin 31.4 pg (27.0-31.0); Mean Platelet Volume 11.3 fL (7.4-10.4); Monocytes 2 % (0-10); Neutrophil 75 % (42-75); Platelet Count 88 10x3/uL (130-400); Platelet Morphology Comment Appears Decreased; RBC Distribution Width 12.8 % (11.5-14.5); RBC Morphology Normal; Red Blood Cell (RBC) Count 2.69 mill/uL (4.20-5.40)
[2022-10-03 07:11] LABS: Vancomycin, Random 21.8 ug/mL (See Comment)
[2022-10-03 07:19] LABS: Actual Bicarbonate (HCO3a) 16.5 mEq/L (22-28); CO2 Tension 25.8 mmHg (35.0-45.0); Calcium, Ionized (arterial) 1.21 mmol/L (1.12-1.30); Carboxyhemoglobin (COHb) 0.2 gm% (0.0-3.0); pH, Arterial 7.42 (7.35-7.45)
[2022-10-03] MEDS: Amiodarone 450 MG in Dextrose 5% in Water 250 ML IVPB SCH ×2 (07:32→16:00)
[2022-10-03] MEDS ORDERED: VANCOMYCIN 1.75 GM/500 ML BAG 1.75 GM in Premix Bag 1 BAG IVPB SCH (08:00)
[2022-10-03] MEDS: Ipratropium/Albuterol 3 ML NEB NEB SCH ×5 (08:02→23:15)
[2022-10-03 08:23] LABS: Hemoglobin 7.5 g/dL (12.0-16.0); Mean Corpuscular HGB CONC 32.9 g/dL (32.0-36.0); Mean Corpuscular Hemoglobin 31.4 pg (27.0-31.0); Mean Corpuscular Volume 95.3 fl (78.0-98.0); RBC Distribution Width 12.9 % (11.5-14.5); Red Blood Cell (RBC) Count 2.38 mill/uL (4.20-5.40)
[2022-10-03 08:28] LABS: INR-International Normal Ratio 2.5; Prothrombin Time 28.2 sec (12.0-14.7)
[2022-10-03 08:44] LABS: Anion Gap 21 mmol/L (10-20); BUN (Urea Nitrogen) 31 mg/dL (9.8-20.1); Calc. Creatinine Clearance 44 mL/min (70-130); Calcium 9.1 mg/dL (7.8-10.44); Carbon Dioxide 14 mmol/L (23-31); Chloride 101 mmol/L (98-107); Estimated GFR 32; Glucose 311 mg/dL (83-110); Magnesium 2.1 mg/dL (1.6-2.6); Phosphorus 4.3 mg/dL (2.3-4.7); Potassium 4.5 mmol/L (3.5-5.1); Sodium 131 mmol/L (136-145)
[2022-10-03 08:56] LABS: Anisocytosis MODERATE=16-30 cells (100X) (0-5/hpf); Band 20 % (5-11); Burr Cells SLIGHT = 2-5 cells (100X) (0-1/hpf); Lymphocytes 7 % (21-51); MDiff Complete? YES; Mean Platelet Volume 9.8 fL (7.4-10.4); Metamyelocyte 1 % (0-0); Monocytes 6 % (0-10); Neutrophil 66 % (42-75); Nucleated RBC 2 % (0); Ovalocytes SLIGHT = 2-5 cells (100X) (0-1/hpf); Platelet Count 174 10x3/uL (130-400); Platelet Morphology Comment Appears Adequate; Vacuoles SLIGHT; White Blood Cell (WBC) Count 27.5 10x3/uL (4.8-10.8)
[2022-10-03] MEDS ORDERED: Amiodarone 200 MG TAB PO SCH (09:00)
[2022-10-03] MEDS ORDERED: TETANUS, DIPHTHERIA TOX,ADULT (TDVAX) 0.5 ML VIAL IM ONE (09:09)
[2022-10-03] MEDS ORDERED: Insulin Regular 300 UNITS/3 ML VIAL SC SCH ×2 (09:15→17:00)
[2022-10-03] MEDS: Amiodarone 200 MG TAB PO SCH ×3 (09:26→20:34)
[2022-10-03] MEDS: Sodium Chloride 1 GM TAB PO SCH ×2 (09:26→14:31)
[2022-10-03] MEDS: Pantoprazole 40 MG VIAL IVP SCH ×2 (09:30→20:47)
[2022-10-03] MEDS: Vasopressin 20 UNIT, Admixture Fee 1 EACH in Sodium Chloride 0.9% 50 ML IV SCH ×2 (09:33→15:59)
[2022-10-03] MEDS: Insulin Regular 300 UNITS/3 ML VIAL SC PRN (11:44)
[2022-10-03 11:52] LABS: Hemoglobin 8.4 g/dL (12.0-16.0); Mean Corpuscular HGB CONC 32.8 g/dL (32.0-36.0); Mean Corpuscular Hemoglobin 30.6 pg (27.0-31.0); Mean Corpuscular Volume 93.1 fl (78.0-98.0); RBC Distribution Width 13.5 % (11.5-14.5); Red Blood Cell (RBC) Count 2.76 mill/uL (4.20-5.40)
[2022-10-03] MEDS ORDERED: NPH, Human Insulin Isophane 300 UNIT/3 ML VIAL SC SCH (12:00)
[2022-10-03 12:06] LABS: INR-International Normal Ratio 2.8; PTT 44.4 sec (22.9-36.1); Prothrombin Time 30.4 sec (12.0-14.7)
[2022-10-03 12:10] LABS: Band 17 % (5-11); Burr Cells SLIGHT = 2-5 cells (100X) (0-1/hpf); Lymphocytes 5 % (21-51); MDiff Complete? YES; Mean Platelet Volume 10.1 fL (7.4-10.4); Monocytes 4 % (0-10); Neutrophil 73 % (42-75); Ovalocytes SLIGHT = 2-5 cells (100X) (0-1/hpf); Platelet Count 148 10x3/uL (130-400); Platelet Morphology Comment Appears Adequate; Polychromasia SLIGHT = 2-3 cells (100X) (0-2/hpf); Reactive Lymphocytes 1 % (0-10); White Blood Cell (WBC) Count 32.4 10x3/uL (4.8-10.8)
[2022-10-03] MEDS ORDERED: Insulin NPH Human Isophane 100 UNIT/ML (10 ML VIAL) SC SCH ×2 (12:15→16:00)
[2022-10-03 12:20] LABS: Lactic Acid 11.9 mmol/L (0.5-2.2)
[2022-10-03] MEDS: SODIUM ACETATE IV SCH (16:26)
[2022-10-03] MEDS: [UNRECOGNIZED DRUG - OTHER] IV SCH (16:26)
[2022-10-03] MEDS: POTASSIUM CHLORIDE IV SCH (16:26)
[2022-10-03] MEDS: SODIUM CHLORIDE IV SCH (16:26)
[2022-10-03] MEDS: Micafungin 100 MG in Sodium Chloride 0.9% 100 ML IVPB SCH (16:37)
[2022-10-03] MEDS: Sodium Bicarbonate 150 MEQ in Dextrose 5% in Water 1,000 ML IV SCH (16:45)
[2022-10-03 18:33] LABS: Hemoglobin 8.3 g/dL (12.0-16.0); Mean Corpuscular HGB CONC 33.5 g/dL (32.0-36.0); Mean Corpuscular Volume 89.6 fl (78.0-98.0); RBC Distribution Width 13.6 % (11.5-14.5); Red Blood Cell (RBC) Count 2.75 mill/uL (4.20-5.40)
[2022-10-03 18:41] LABS: INR-International Normal Ratio 2.7; PTT 42.2 sec (22.9-36.1); Prothrombin Time 29.8 sec (12.0-14.7)
[2022-10-03 18:52] LABS: Band 16 % (5-11); Lymphocytes 8 % (21-51); MDiff Complete? YES; Mean Platelet Volume 10.4 fL (7.4-10.4); Monocytes 4 % (0-10); Myelocyte 1 % (0-0); Neutrophil 71 % (42-75); Nucleated RBC 4 % (0); Ovalocytes SLIGHT = 2-5 cells (100X) (0-1/hpf); Platelet Count 106 10x3/uL (130-400); Platelet Morphology Comment Appears Decreased; Polychromasia SLIGHT = 2-3 cells (100X) (0-2/hpf); White Blood Cell (WBC) Count 35.2 10x3/uL (4.8-10.8)
[2022-10-03 18:55] LABS: Lactic Acid 9.2 mmol/L (0.5-2.2)
[2022-10-03 19:44] LABS: Actual Bicarbonate (HCO3a) 18.2 mEq/L (22-28); Base Excess (BEa) -5.8 mEq/L (-2.0 to +3.0); CO2 Tension 30.1 mmHg (35.0-45.0); Calcium, Ionized (arterial) 1.17 mmol/L (1.12-1.30); Carboxyhemoglobin (COHb) 0.2 gm% (0.0-3.0); Hemoglobin (Hb) 8.5 g/dL (12.0-16.0); O2 Tension (PaO2), arterial 97.4 mmHg (> 70.0); Potassium - ABG Lab 4.58 mmol/L (3.70-5.30)
[2022-10-03 19:48] LABS: Puncture Site Arterial Line
[2022-10-03 19:49] LABS: ALV-art Gradient 114.525 mmHg (0-20)
[2022-10-03] MEDS ORDERED: Insulin Glargine 30 UNITS/0.3 ML VIAL SC SCH ×2 (21:00)
[2022-10-04] MEDS: Sodium Chloride 1 GM TAB PO SCH ×3 (00:57→15:09)
[2022-10-04 01:09] LABS: Hemoglobin 7.6 g/dL (12.0-16.0); Mean Corpuscular HGB CONC 34.9 g/dL (32.0-36.0); Mean Corpuscular Hemoglobin 31.5 pg (27.0-31.0); Mean Corpuscular Volume 90.2 fl (78.0-98.0); Mean Platelet Volume 10.9 fL (7.4-10.4); Platelet Count 78 10x3/uL (130-400); RBC Distribution Width 14.4 % (11.5-14.5); Red Blood Cell (RBC) Count 2.42 mill/uL (4.20-5.40)
[2022-10-04 01:23] LABS: INR-International Normal Ratio 2.3; PTT 40.6 sec (22.9-36.1); Prothrombin Time 26.2 sec (12.0-14.7)
[2022-10-04 01:24] LABS: Band 45 % (5-11); Hypochromia SLIGHT = 6-15 cells (100X) (0-5/hpf); Lymphocytes 13 % (21-51); MDiff Complete? YES; Monocytes 5 % (0-10); Neutrophil 36 % (42-75); Nucleated RBC 3 % (0); Platelet Morphology Comment Appears Decreased; Reactive Lymphocytes 1 % (0-10)
[2022-10-04] MEDS: Insulin Regular 300 UNITS/3 ML VIAL SC PRN (01:28)
[2022-10-04] MEDS ORDERED: Vancomycin Dose by Levels Sliding Scale (Wt 71-99) FS SCH (03:00)
[2022-10-04] MEDS: Vasopressin 20 UNIT, Admixture Fee 1 EACH in Sodium Chloride 0.9% 50 ML IV SCH ×2 (03:55→12:18)
[2022-10-04] MEDS ORDERED: Hydrocortisone Sod Succ/PF 100 mg/2 ml Vial IVP SCH (04:15)
[2022-10-04] MEDS ORDERED: Calcium Chloride 1 GM/10 ML Abboject SYRINGE ONE (04:40)
[2022-10-04 04:42] LABS: Base Excess (BEa) -11.2 mEq/L (-2.0 to +3.0); CO2 Tension 26.5 mmHg (35.0-45.0); Calcium, Ionized (arterial) 1.13 mmol/L (1.12-1.30); Carboxyhemoglobin (COHb) 0.5 gm% (0.0-3.0); O2 Tension (PaO2), arterial 134.9 mmHg (> 70.0); Potassium - ABG Lab 5.33 mmol/L (3.70-5.30); pH, Arterial 7.33 (7.35-7.45)
[2022-10-04 04:43] LABS: Puncture Site Arterial Line
[2022-10-04 04:44] LABS: ALV-art Gradient 117.175 mmHg (0-20)
[2022-10-04] MEDS ORDERED: Calcium Chloride 1 GM/10 ML Abboject SYRINGE IVP SCH ×2 (04:45→21:45)
[2022-10-04 05:00] LABS: Hemoglobin 4.6 g/dL (12.0-16.0); Mean Corpuscular HGB CONC 39.1 g/dL (32.0-36.0); Mean Corpuscular Volume 99.6 fl (78.0-98.0); Mean Platelet Volume 9.4 fL (7.4-10.4); Platelet Count 151 10x3/uL (130-400); RBC Distribution Width 21.8 % (11.5-14.5); Red Blood Cell (RBC) Count 1.18 mill/uL (4.20-5.40)
[2022-10-04 05:04] LABS: INR-International Normal Ratio 2.4; PTT 41.8 sec (22.9-36.1); Prothrombin Time 27.4 sec (12.0-14.7)
[2022-10-04 05:13] LABS: Lactic Acid 13.2 mmol/L (0.5-2.2)
[2022-10-04 05:30] LABS: Band 14 % (5-11); Hypochromia SLIGHT = 6-15 cells (100X) (0-5/hpf); Lymphocytes 42 % (21-51); MDiff Complete? YES; Metamyelocyte 1 % (0-0); Monocytes 3 % (0-10); Neutrophil 36 % (42-75); Platelet Morphology Comment Appears Adequate; Reactive Lymphocytes 4 % (0-10)
[2022-10-04 05:42] LABS: Anion Gap 24 mmol/L (10-20); BUN (Urea Nitrogen) 33 mg/dL (9.8-20.1); Calc. Creatinine Clearance 43 mL/min (70-130); Calcium 8.7 mg/dL (7.8-10.44); Carbon Dioxide 13 mmol/L (23-31); Chloride 100 mmol/L (98-107); Estimated GFR 31; Glucose 125 mg/dL (83-110); Magnesium 2.3 mg/dL (1.6-2.6); Phosphorus 5.9 mg/dL (2.3-4.7); Potassium 5.5 mmol/L (3.5-5.1); Sodium 131 mmol/L (136-145)
[2022-10-04] MEDS ORDERED: Phytonadione 10 MG in Sodium Chloride 0.9% 50 ML IVPB SCH ×2 (05:45→23:30)
[2022-10-04 05:58] LABS: Base Excess (BEa) -11.1 mEq/L (-2.0 to +3.0); CO2 Tension 33.4 mmHg (35.0-45.0); Hemoglobin (Hb) 11.3 g/dL (12.0-16.0); O2 Tension (PaO2), arterial 95.2 mmHg (> 70.0); Potassium - ABG Lab 5.17 mmol/L (3.70-5.30); pH, Arterial 7.27 (7.35-7.45)
[2022-10-04 06:00] LABS: Actual Bicarbonate (HCO3a) 14.8 mEq/L (22-28); Puncture Site Arterial Line
[2022-10-04] MEDS ORDERED: Midazolam HCl 2 mg/2 ml Vial ONE (06:37)
[2022-10-04] MEDS ORDERED: fentaNYL PF 100 MCG/2 ML SYRINGE ONE (07:12)
[2022-10-04] MEDS ORDERED: Rocuronium Bromide 10 MG/ML (10ML VIAL) ONE (07:21)
[2022-10-04] MEDS ORDERED: ADMIXTURE FEE IV SCH (08:00)
[2022-10-04] MEDS ORDERED: HUMAN PROTHROMBIN COMPLX IV SCH (08:00)
[2022-10-04] MEDS: Ipratropium/Albuterol 3 ML NEB NEB SCH ×5 (08:06→23:43)
[2022-10-04] MEDS ORDERED: Insulin Glargine 30 UNITS/0.3 ML VIAL SC SCH ×3 (09:00→21:00)
[2022-10-04] MEDS: Amiodarone 200 MG TAB PO SCH ×3 (09:43→20:29)
[2022-10-04 10:03] LABS: Anion Gap 20 mmol/L (10-20); BUN (Urea Nitrogen) 35 mg/dL (9.8-20.1); Calc. Creatinine Clearance 43 mL/min (70-130); Calcium 9.1 mg/dL (7.8-10.44); Carbon Dioxide 16 mmol/L (23-31); Chloride 101 mmol/L (98-107); Estimated GFR 31; Glucose 93 mg/dL (83-110); Magnesium 2.1 mg/dL (1.6-2.6); Phosphorus 5.8 mg/dL (2.3-4.7); Potassium 4.8 mmol/L (3.5-5.1); Sodium 132 mmol/L (136-145)
[2022-10-04] MEDS: Pantoprazole 40 MG VIAL IVP SCH ×2 (10:03→20:31)
[2022-10-04] MEDS: Levothyroxine 100 MCG SDV IVP SCH (10:04)
[2022-10-04] MEDS: Hydrocortisone Sod Succ/PF 100 mg/2 ml Vial IVP SCH ×2 (10:04→17:48)
[2022-10-04 10:09] LABS: PTT 41.6 sec (22.9-36.1); Prothrombin Time 23.6 sec (12.0-14.7)
[2022-10-04 10:11] LABS: Lactic Acid 9.6 mmol/L (0.5-2.2)
[2022-10-04 10:17] LABS: Band 17 % (5-11); Hemoglobin 10.5 g/dL (12.0-16.0); Large Platelets MODERATE; Lymphocytes 10 % (21-51); MDiff Complete? YES; Mean Corpuscular Hemoglobin 30.3 pg (27.0-31.0); Mean Corpuscular Volume 89.1 fl (78.0-98.0); Metamyelocyte 4 % (0-0); Monocytes 12 % (0-10); Neutrophil 57 % (42-75); Nucleated RBC 5 % (0); Platelet Count 93 10x3/uL (130-400); Platelet Morphology Comment Appears Decreased; Polychromasia SLIGHT = 2-3 cells (100X) (0-2/hpf); RBC Distribution Width 14.4 % (11.5-14.5); Red Blood Cell (RBC) Count 3.47 mill/uL (4.20-5.40); Vacuoles SLIGHT
[2022-10-04 10:32] LABS: Actual Bicarbonate (HCO3a) 17.2 mEq/L (22-28); Base Excess (BEa) -7.6 mEq/L (-2.0 to +3.0); CO2 Tension 32.9 mmHg (35.0-45.0); Calcium, Ionized (arterial) 1.21 mmol/L (1.12-1.30); Carboxyhemoglobin (COHb) 0.4 gm% (0.0-3.0); Hemoglobin (Hb) 11.1 g/dL (12.0-16.0); O2 Tension (PaO2), arterial 63.7 mmHg (> 70.0); Potassium - ABG Lab 5.26 mmol/L (3.70-5.30); pH, Arterial 7.34 (7.35-7.45)
[2022-10-04] MEDS: Meropenem 1 GM in Sodium Chloride 0.9% 100 ML IVPB SCH ×2 (10:51→19:08)
[2022-10-04] MEDS: Sodium Bicarbonate 150 MEQ in Dextrose 5% in Water 1,000 ML IV SCH (11:18)
[2022-10-04] MEDS: Amiodarone 450 MG in Dextrose 5% in Water 250 ML IVPB SCH (12:18)
[2022-10-04 13:47] LABS: INR-International Normal Ratio 2.2; PTT 39.8 sec (22.9-36.1); Prothrombin Time 25.1 sec (12.0-14.7)
[2022-10-04 13:52] LABS: Anion Gap 19 mmol/L (10-20); BUN (Urea Nitrogen) 37 mg/dL (9.8-20.1); Calc. Creatinine Clearance 42 mL/min (70-130); Calcium 8.9 mg/dL (7.8-10.44); Carbon Dioxide 17 mmol/L (23-31); Chloride 99 mmol/L (98-107); Estimated GFR 29; Glucose 120 mg/dL (83-110); Magnesium 2.1 mg/dL (1.6-2.6); Potassium 5.2 mmol/L (3.5-5.1); Sodium 130 mmol/L (136-145)
[2022-10-04 13:56] LABS: Phosphorus 5.4 mg/dL (2.3-4.7)
[2022-10-04 14:00] LABS: Band 33 % (5-11); Hemoglobin 10.1 g/dL (12.0-16.0); Large Platelets SLIGHT; Lymphocytes 11 % (21-51); MDiff Complete? YES; Mean Corpuscular HGB CONC 34.4 g/dL (32.0-36.0); Mean Corpuscular Hemoglobin 30.5 pg (27.0-31.0); Mean Corpuscular Volume 88.7 fl (78.0-98.0); Mean Platelet Volume 10.5 fL (7.4-10.4); Metamyelocyte 11 % (0-0); Monocytes 10 % (0-10); Myelocyte 5 % (0-0); Neutrophil 30 % (42-75); Nucleated RBC 8 % (0); Ovalocytes SLIGHT = 2-5 cells (100X) (0-1/hpf); Platelet Count 79 10x3/uL (130-400); Platelet Morphology Comment Appears Decreased; Polychromasia SLIGHT = 2-3 cells (100X) (0-2/hpf); RBC Distribution Width 14.6 % (11.5-14.5); Red Blood Cell (RBC) Count 3.31 mill/uL (4.20-5.40); Toxic Granulation SLIGHT; Vacuoles SLIGHT; White Blood Cell (WBC) Count 43.2 10x3/uL (4.8-10.8)
[2022-10-04] MEDS ORDERED: SODIUM CHLORIDE IV SCH (14:00)
[2022-10-04] MEDS ORDERED: CALCIUM GLUCONATE IV SCH (14:00)
[2022-10-04] MEDS ORDERED: SODIUM ACETATE IV SCH (14:00)
[2022-10-04] MEDS ORDERED: [UNRECOGNIZED DRUG - OTHER] IV SCH (14:00)
[2022-10-04 14:02] LABS: Lactic Acid 8.6 mmol/L (0.5-2.2)
[2022-10-04] MEDS: NOREPINEPHRINE 8 MG/250 ML-D5W 250 ML IVPB SCH (16:44)
[2022-10-04 16:55] LABS: Hemoglobin 9.7 g/dL (12.0-16.0); Mean Corpuscular HGB CONC 33.6 g/dL (32.0-36.0); Mean Corpuscular Volume 89.5 fl (78.0-98.0); Mean Platelet Volume 11.1 fL (7.4-10.4); Platelet Count 80 10x3/uL (130-400); RBC Distribution Width 14.8 % (11.5-14.5); Red Blood Cell (RBC) Count 3.24 mill/uL (4.20-5.40)
[2022-10-04 17:04] LABS: INR-International Normal Ratio 2.3; PTT 41.5 sec (22.9-36.1); Prothrombin Time 26.3 sec (12.0-14.7)
[2022-10-04 17:15] LABS: Anion Gap 17 mmol/L (10-20); BUN (Urea Nitrogen) 39 mg/dL (9.8-20.1); Calc. Creatinine Clearance 38 mL/min (70-130); Calcium 8.7 mg/dL (7.8-10.44); Carbon Dioxide 18 mmol/L (23-31); Chloride 99 mmol/L (98-107); Estimated GFR 26; Glucose 140 mg/dL (83-110); Magnesium 2.1 mg/dL (1.6-2.6); Potassium 5.3 mmol/L (3.5-5.1); Sodium 129 mmol/L (136-145)
[2022-10-04 17:16] LABS: Band 36 % (5-11); Large Platelets SLIGHT; Lymphocytes 8 % (21-51); MDiff Complete? YES; Metamyelocyte 5 % (0-0); Monocytes 2 % (0-10); Myelocyte 2 % (0-0); Neutrophil 47 % (42-75); Nucleated RBC 5 % (0); Platelet Morphology Comment Appears Decreased; Polychromasia SLIGHT = 2-3 cells (100X) (0-2/hpf); Toxic Granulation SLIGHT; Vacuoles SLIGHT; White Blood Cell (WBC) Count 40.9 10x3/uL (4.8-10.8)
[2022-10-04 17:26] LABS: Lactic Acid 7.4 mmol/L (0.5-2.2)
[2022-10-04] MEDS: Micafungin 100 MG in Sodium Chloride 0.9% 100 ML IVPB SCH (17:40)
[2022-10-04] MEDS ORDERED: Sodium Chloride 0.9% 500 ML IV SCH (17:45)
[2022-10-04 20:41] LABS: Actual Bicarbonate (HCO3a) 18.3 mEq/L (22-28); Base Excess (BEa) -5.7 mEq/L (-2.0 to +3.0); CO2 Tension 30.3 mmHg (35.0-45.0); Calcium, Ionized (arterial) 1.12 mmol/L (1.12-1.30); Carboxyhemoglobin (COHb) 0.3 gm% (0.0-3.0); O2 Tension (PaO2), arterial 73.3 mmHg (> 70.0); Potassium - ABG Lab 4.81 mmol/L (3.70-5.30)
[2022-10-04 20:42] LABS: ALV-art Gradient 316.625 mmHg (0-20); Puncture Site Arterial Line
[2022-10-04 22:45] LABS: Hemoglobin 8.9 g/dL (12.0-16.0); Mean Corpuscular HGB CONC 33.8 g/dL (32.0-36.0); Mean Corpuscular Hemoglobin 30.4 pg (27.0-31.0); Mean Corpuscular Volume 89.9 fl (78.0-98.0); Mean Platelet Volume 11.3 fL (7.4-10.4); Platelet Count 80 10x3/uL (130-400); RBC Distribution Width 14.8 % (11.5-14.5); Red Blood Cell (RBC) Count 2.94 mill/uL (4.20-5.40); White Blood Cell (WBC) Count 39.1 10x3/uL (4.8-10.8)
[2022-10-04 22:54] LABS: INR-International Normal Ratio 2.9; PTT 47.6 sec (22.9-36.1); Prothrombin Time 31.5 sec (12.0-14.7)
[2022-10-04 23:03] LABS: Phosphorus 4.4 mg/dL (2.3-4.7)
[2022-10-04 23:04] LABS: Lactic Acid 5.5 mmol/L (0.5-2.2)
[2022-10-04 23:06] LABS: Magnesium 2.1 mg/dL (1.6-2.6)
[2022-10-04 23:13] LABS: Anion Gap 18 mmol/L (10-20); BUN (Urea Nitrogen) 41 mg/dL (9.8-20.1); Calc. Creatinine Clearance 37 mL/min (70-130); Calcium 8.6 mg/dL (7.8-10.44); Carbon Dioxide 20 mmol/L (23-31); Chloride 99 mmol/L (98-107); Estimated GFR 25; Glucose 137 mg/dL (83-110); Sodium 132 mmol/L (136-145)
[2022-10-04 23:42] VITALS: BP 115/92
[2022-10-04 23:51] LABS: Anisocytosis SLIGHT = 6-15 cells (100X) (0-5/hpf); Band 28 % (5-11); Burr Cells SLIGHT = 2-5 cells (100X) (0-1/hpf); Lymphocytes 9 % (21-51); MDiff Complete? YES; Metamyelocyte 4 % (0-0); Monocytes 9 % (0-10); Myelocyte 3 % (0-0); Neutrophil 47 % (42-75); Nucleated RBC 2 % (0); Platelet Morphology Comment Appears Decreased
[2022-10-05] MEDS: Sodium Chloride 1 GM TAB PO SCH ×2 (00:51→07:59)
[2022-10-05 01:39] LABS: INR-International Normal Ratio 2.5; PTT 47.2 sec (22.9-36.1)
[2022-10-05 01:48] LABS: Phosphorus 4.5 mg/dL (2.3-4.7)
[2022-10-05 01:49] LABS: Magnesium 2.1 mg/dL (1.6-2.6)
[2022-10-05 01:52] LABS: Lactic Acid 5.4 mmol/L (0.5-2.2)
[2022-10-05 01:53] LABS: Actual Bicarbonate (HCO3a) 20.5 mEq/L (22-28); Base Excess (BEa) -3.1 mEq/L (-2.0 to +3.0); CO2 Tension 30.6 mmHg (35.0-45.0); Calcium, Ionized (arterial) 1.16 mmol/L (1.12-1.30); Carboxyhemoglobin (COHb) 0.1 gm% (0.0-3.0); Hemoglobin (Hb) 8.3 g/dL (12.0-16.0); O2 Tension (PaO2), arterial 164.8 mmHg (> 70.0); Potassium - ABG Lab 4.77 mmol/L (3.70-5.30); pH, Arterial 7.44 (7.35-7.45)
[2022-10-05 01:54] LABS: Puncture Site RRA
[2022-10-05 02:05] LABS: Hemoglobin 8.3 g/dL (12.0-16.0); Mean Corpuscular HGB CONC 33.7 g/dL (32.0-36.0); Mean Corpuscular Hemoglobin 30.2 pg (27.0-31.0); Mean Corpuscular Volume 89.7 fl (78.0-98.0); Platelet Count 67 10x3/uL (130-400); RBC Distribution Width 14.8 % (11.5-14.5); Red Blood Cell (RBC) Count 2.73 mill/uL (4.20-5.40); White Blood Cell (WBC) Count 33.1 10x3/uL (4.8-10.8)
[2022-10-05 02:06] LABS: Anisocytosis SLIGHT = 6-15 cells (100X) (0-5/hpf); Band 41 % (5-11); Lymphocytes 10 % (21-51); MDiff Complete? YES; Metamyelocyte 3 % (0-0); Monocytes 6 % (0-10); Myelocyte 4 % (0-0); Neutrophil 36 % (42-75); Nucleated RBC 12 % (0); Platelet Morphology Comment Appears Decreased; Toxic Granulation SLIGHT
[2022-10-05] MEDS: Meropenem 1 GM in Sodium Chloride 0.9% 100 ML IVPB SCH (04:53)
[2022-10-05] MEDS: Levothyroxine 100 MCG SDV IVP SCH (06:00)
[2022-10-05] MEDS: Ipratropium/Albuterol 3 ML NEB NEB SCH (07:03)
[2022-10-05 07:13] LABS: Hemoglobin 7.9 g/dL (12.0-16.0); Mean Corpuscular HGB CONC 32.6 g/dL (32.0-36.0); Mean Corpuscular Hemoglobin 29.4 pg (27.0-31.0); Mean Corpuscular Volume 90.4 fl (78.0-98.0); Mean Platelet Volume 11.6 fL (7.4-10.4); Platelet Count 68 10x3/uL (130-400); RBC Distribution Width 14.8 % (11.5-14.5)
[2022-10-05 07:20] LABS: Actual Bicarbonate (HCO3a) 23.1 mEq/L (22-28); Base Excess (BEa) -0.9 mEq/L (-2.0 to +3.0); CO2 Tension 34.8 mmHg (35.0-45.0); Calcium, Ionized (arterial) 1.16 mmol/L (1.12-1.30); Carboxyhemoglobin (COHb) 0.3 gm% (0.0-3.0); Hemoglobin (Hb) 8.6 g/dL (12.0-16.0); O2 Tension (PaO2), arterial 180.6 mmHg (> 70.0); Potassium - ABG Lab 4.48 mmol/L (3.70-5.30); pH, Arterial 7.44 (7.35-7.45)
[2022-10-05 07:21] LABS: Puncture Site RRA
[2022-10-05 07:24] LABS: Lactic Acid 4.5 mmol/L (0.5-2.2)
[2022-10-05 07:25] LABS: Phosphorus 4.6 mg/dL (2.3-4.7)
[2022-10-05 07:26] LABS: Anion Gap 18 mmol/L (10-20); BUN (Urea Nitrogen) 47 mg/dL (9.8-20.1); Calc. Creatinine Clearance 33 mL/min (70-130); Calcium 8.8 mg/dL (7.8-10.44); Carbon Dioxide 21 mmol/L (23-31); Chloride 99 mmol/L (98-107); Estimated GFR 22; Glucose 144 mg/dL (83-110); Potassium 4.7 mmol/L (3.5-5.1); Sodium 133 mmol/L (136-145)
[2022-10-05 07:37] LABS: INR-International Normal Ratio 2.4; PTT 46.4 sec (22.9-36.1)
[2022-10-05 07:49] VITALS: TEMP 98.3
[2022-10-05 08:15] LABS: MDiff Complete? YES; Red Blood Cell (RBC) Count 2.68 mill/uL (4.20-5.40)
[2022-10-05 08:16] LABS: Band 35 % (5-11); Lymphocytes 10 % (21-51); Metamyelocyte 4 % (0-0); Monocytes 10 % (0-10); Neutrophil 41 % (42-75); Nucleated RBC 5 % (0); Platelet Morphology Comment Appears Decreased; Polychromasia SLIGHT = 2-3 cells (100X) (0-2/hpf); Toxic Granulation SLIGHT
[2022-10-05] MEDS ORDERED: Furosemide 100 MG, Admixture Fee 1 EACH in Sodium Chloride 0.9% 100 ML IVPB SCH (08:30)
[2022-10-05] MEDS: Amiodarone 200 MG TAB PO SCH (09:08)
[2022-10-05 09:17] LABS: Hemoglobin 7.9 g/dL (12.0-16.0); Mean Corpuscular HGB CONC 32.5 g/dL (32.0-36.0); Mean Corpuscular Hemoglobin 29.2 pg (27.0-31.0); Mean Platelet Volume 11.6 fL (7.4-10.4); Platelet Count 65 10x3/uL (130-400); RBC Distribution Width 14.9 % (11.5-14.5); Red Blood Cell (RBC) Count 2.71 mill/uL (4.20-5.40); White Blood Cell (WBC) Count 37.7 10x3/uL (4.8-10.8)
[2022-10-05] MEDS: Pantoprazole 40 MG VIAL IVP SCH (09:18)
[2022-10-05 09:34] LABS: INR-International Normal Ratio 2.2; PTT 44.6 sec (22.9-36.1); Prothrombin Time 25.4 sec (12.0-14.7)
[2022-10-05 09:42] LABS: Lactic Acid 4.8 mmol/L (0.5-2.2)
[2022-10-05] MEDS ORDERED: Morphine 2 MG/ML VIAL SLOW IVP PRN (10:43)
[2022-10-05] MEDS ORDERED: Lorazepam 2 MG/ML VIAL SLOW IVP PRN (10:44)
[2022-10-05 10:51] LABS: Band 35 % (5-11); Lymphocytes 6 % (21-51); MDiff Complete? YES; Metamyelocyte 4 % (0-0); Monocytes 6 % (0-10); Myelocyte 1 % (0-0); Neutrophil 45 % (42-75); Nucleated RBC 6 % (0); Platelet Morphology Comment Appears Decreased; Polychromasia SLIGHT = 2-3 cells (100X) (0-2/hpf); Reactive Lymphocytes 3 % (0-10)
[2022-10-06 15:20] LABS: Actual Bicarbonate (HCO3a) 13.8 mEq/L (22-28)
[2022-10-06 15:21] LABS: Hemoglobin (Hb) 4.6 g/dL (12.0-16.0)
== END 2022-10-05 12:15 | disposition expired | DRG 853 ==
LOC: ERS 12:47 → ERHOLD 14:03 → T4-A 20:42 → SURG A 09-23 14:31 → IMCU/EMU 09-23 18:15 → CCU 09-24 10:02 → IMCU/EMU 09-24 10:14 → CCU 09-24 10:33
PROVIDERS: ADMIT Internal Medicine; ATTEND Family Medicine
PROC: 0DBF0ZZ Excision of Right Large Intestine, Open Approach (ICD-10-PCS; principal; 2022-09-21)
PROC: 0DB80ZZ Excision of Small Intestine, Open Approach (ICD-10-PCS; 2022-09-21)
PROC: 0DBN0ZZ Excision of Sigmoid Colon, Open Approach (ICD-10-PCS; 2022-09-21)
PROC: 0W9G0ZZ Drainage of Peritoneal Cavity, Open Approach (ICD-10-PCS; 2022-09-21)
PROC: 0D1 Gastrointestinal System, Bypass (ICD-10-PCS; 2022-09-21)
PROC: 0D9670Z Drainage of Stomach with Drainage Device, Via Natural or Artificial Opening (ICD-10-PCS; 2022-09-21)
PROC: 02HV33Z Insertion of Infusion Device into Superior Vena Cava, Percutaneous Approach (ICD-10-PCS; 2022-09-21)
PROC: 30233N1 Transfusion of Nonautologous Red Blood Cells into Peripheral Vein, Percutaneous Approach (ICD-10-PCS; 2022-09-23)
PROC: 3E03329 Introduction of Other Anti-infective into Peripheral Vein, Percutaneous Approach (ICD-10-PCS; 2022-09-27)
PROC: 0W9G0ZZ Drainage of Peritoneal Cavity, Open Approach (ICD-10-PCS; 2022-10-01)
PROC: 02HV33Z Insertion of Infusion Device into Superior Vena Cava, Percutaneous Approach (ICD-10-PCS; 2022-10-01)
PROC: 5A1955Z Respiratory Ventilation, Greater than 96 Consecutive Hours (ICD-10-PCS; 2022-10-01)
PROC: 3E043XZ Introduction of Vasopressor into Central Vein, Percutaneous Approach (ICD-10-PCS; 2022-10-01)
PROC: 30233L1 Transfusion of Nonautologous Fresh Plasma into Peripheral Vein, Percutaneous Approach (ICD-10-PCS; 2022-10-02)
PROC: 30233M1 Transfusion of Nonautologous Plasma Cryoprecipitate into Peripheral Vein, Percutaneous Approach (ICD-10-PCS; 2022-10-03)
PROC: 30233R1 Transfusion of Nonautologous Platelets into Peripheral Vein, Percutaneous Approach (ICD-10-PCS; 2022-10-04)
DX: A41.9 Sepsis, unspecified organism (principal); D65 Disseminated intravascular coagulation [defibrination syndrome]; K65.8 Other peritonitis; R65.21 Severe sepsis with septic shock; J96.01 Acute respiratory failure with hypoxia; N17.0 Acute kidney failure with tubular necrosis; K57.20 Diverticulitis of large intestine with perforation and abscess without bleeding; K63.2 Fistula of intestine; R18.8 Other ascites; D62 Acute posthemorrhagic anemia; I47.1 Supraventricular tachycardia; K91.89 Other postprocedural complications and disorders of digestive system; T79.A3XA Traumatic compartment syndrome of abdomen, initial encounter; Z66 Do not resuscitate; Z20.822 Contact with and (suspected) exposure to COVID-19; E03.9 Hypothyroidism, unspecified; I10 Essential (primary) hypertension; E78.5 Hyperlipidemia, unspecified; M35.3 Polymyalgia rheumatica; D63.8 Anemia in other chronic diseases classified elsewhere; E87.6 Hypokalemia; D75.839 Thrombocytosis, unspecified; I48.0 Paroxysmal atrial fibrillation; E11.649 Type 2 diabetes mellitus with hypoglycemia without coma; Z90.49 Acquired absence of other specified parts of digestive tract; Z98.890 Other specified postprocedural states; Z79.84 Long term (current) use of oral hypoglycemic drugs; Z79.890 Hormone replacement therapy; Z79.899 Other long term (current) drug therapy; D72.823 Leukemoid reaction
CPT/HCPCS: 36415; 36416; 36430; 36600; 71045; 74177; 80048; 80053; 80061; 80202; 81001; 82533; 82553; 82607; 82728; 82805; 83540; 83550; 83605; 83735; 83880; 84100; 84134; 84145; 84443; 84484; 85025; 85384; 85610; 85730; 86850; 86900; 86901; 87040; 87070; 87076; 87077; 87186; 87205; 88307; 93005; 93010; 93306; 94002; 94003; 94640; 96365; 96375; 97139; A4649; C1713; C1751; C1776; C1889; C9113; J0282; J0360; J0610; J1100; J1160; J1170; J1611; J1644; J1650; J1720; J1815; J1885; J1940; J2185; J2248; J2250; J2270; J2272; J2405; J2543; J2704; J3010; J3370; J3430; J3475; J3480; J3490; J7030; J7050; J7070; J7120; J7620; J7999; P9012; P9016; P9035; P9045; P9059; Q9963; Q9967; U0002; U0003; U0005